=== PATIENT | female | born 1970 | race Caucasian/White ===

== ENCOUNTER 2019-08-19 19:07 | Emergency (ER) | payer MEDICAID ==
--- NOTE | 2019-08-19 19:32 | ED Physician Documentation ---
History of Present Illness - Stated complaint Stated Complaint: LETHARGIC/SHAKING - Chief complaint Chief Complaint: Neuro - History obtained from History obtained from: Patient, Family (michelle) - History of Present Illness Timing: Yesterday Pain level now: 0 Improved by: rest Worsened by: exertion Associated symptoms: tremulous, fatigue, insomnia, confusion, ataxia - Additonal information Additional information: c/o 1-2 days of multiple c/o. Patient says "my hands are shaking", "the main problem is I'm tired". Michelle says patient is unsteady on her feet, having difficulty performing basic tasks such as toileting (difficulty, by his description, seems to be due to a combination of fatigue, ataxia, and confusion). He says she has been fatigued yet has had difficulty sleeping past few nights. Review of Systems Constitutional: reports: Fatigue. denies: Fever, Chills, Sweats Eyes: reports: Reviewed and negative Ears: reports: Reviewed and negative Cardiac: reports: Reviewed and negative Respiratory: reports: Reviewed and negative GI: reports: Reviewed and negative : denies: Dysuria, Frequency Musculoskeletal: reports: Reviewed and negative Neurologic: reports: Generalized weakness, Difficulty speaking, Confused, Altered mental status. denies: Focal weakness, Numbness, Headache PD PAST MEDICAL HISTORY - Past Medical History Past Medical History: No - Past Surgical History Past Surgical History: No - Living Situation Living Situation: reports: With spouse/s.o. (michelle) Living Arrangement: reports: At home - Social History Does the pt drink ETOH?: Yes ETOH Use: Other (states "occasionally") PD ED PE NORMAL - Vitals Vital signs reviewed: Yes - General General: Alert and oriented X 3, Well developed/nourished, Other (slurred speech, slow to answer questions) - HEENT HEENT: Moist mucous membranes - Neck Neck: Supple, no meningeal sign, No JVD - Respiratory Respiratory: No respiratory distress, Clear bilaterally - Abdomen Abdomen: Soft, Non tender, Non distended - Back Back: No CVA TTP - Derm Derm: Normal color, Warm and dry - Extremities Extremities: No edema PD ED PE EXPANDED - HEENT HEENT: Other (pupils are midsize but minimally reactive to light). No: Pupils unequal - Cardiac Cardiac: Tachy, Regular Rhythm, Murmur Present (2/6 JOSE cardiac base (bilateral 2nd ICS)) - Neuro Neuro: Nystagmus Results - Vitals Vitals: Vital Signs - 24 hr 08/19/19 08/19/19 08/19/19 19:14 19:20 20:32 Temperature 36.8 C 98.3 C H Heart Rate 121 H 121 H 122 H Respiratory 18 18 14 Rate Blood Pressure 147/80 H 145/72 H 143/79 H O2 Saturation 98 98 100 08/19/19 21:55 Temperature Heart Rate 120 H Respiratory 15 Rate Blood Pressure 129/80 O2 Saturation 100 Oxygen O2 Source Room air - EKG (time done) No standard instances Rate: Rate (enter#) (121) Rhythm: Sinus tachycardia [place]: Normal Intervals: Prolonged QT QRS: Normal Ischemia: ST depression (V3-V6) - Labs Labs: Laboratory Tests 08/19/19 08/19/19 08/19/19 20:20 20:20 20:20 WBC 3.2 L RBC 2.92 L Hgb 7.0 L* Hct 24.3 L MCV 83.2 MCH 24.0 L MCHC 28.8 L RDW 24.0 H Plt Count 58 L MPV 8.5 Neut # (Auto) 2.5 Lymph # (Auto) 0.4 L [place] # (Auto) 0.2 Eos # (Auto) 0.0 Baso # (Auto) 0.0 Absolute Nucleated RBC 0.00 Nucleated RBC % 0.0 Manual Slide Review Indicated Platelet Estimate DECREASED (<130,000) Platelet Morphology NORMAL APPEARANCE RBC Morph Micro Appear 2+ STOMATOCYTES Sodium 139 Potassium 2.4 L* Chloride 103 Carbon Dioxide 24 Anion Gap 12.0 BUN 8 Creatinine 0.6 Estimated GFR (MDRD) 106 Glucose 135 H Lactic Acid Calcium 8.8 Total Bilirubin 2.8 H AST 81 H ALT 28 Alkaline Phosphatase 193 H Ammonia Troponin I High Sens B-Natriuretic Peptide 98 Total Protein 6.7 Albumin 3.4 Globulin 3.3 Albumin/Globulin Ratio 1.0 Lipase 42 TSH HCG, Quant Ethyl Alcohol < 5.0 08/19/19 08/19/19 08/19/19 20:20 20:20 20:20 WBC RBC Hgb Hct MCV MCH MCHC RDW Plt Count MPV Neut # (Auto) Lymph # (Auto) [place] # (Auto) Eos # (Auto) Baso # (Auto) Absolute Nucleated RBC Nucleated RBC % Manual Slide Review Platelet Estimate Platelet Morphology RBC Morph Micro Appear Sodium Potassium Chloride Carbon Dioxide Anion Gap BUN Creatinine Estimated GFR (MDRD) Glucose Lactic Acid 1.6 Calcium Total Bilirubin AST ALT Alkaline Phosphatase Ammonia Troponin I High Sens B-Natriuretic Peptide Total Protein Albumin Globulin Albumin/Globulin Ratio Lipase TSH 1.59 HCG, Quant 2.05 Ethyl Alcohol 08/19/19 08/19/19 20:20 20:20 WBC RBC Hgb Hct MCV MCH MCHC RDW Plt Count MPV Neut # (Auto) Lymph # (Auto) [place] # (Auto) Eos # (Auto) Baso # (Auto) Absolute Nucleated RBC Nucleated RBC % Manual Slide Review Platelet Estimate Platelet Morphology RBC Morph Micro Appear Sodium Potassium Chloride Carbon Dioxide Anion Gap BUN Creatinine Estimated GFR (MDRD) Glucose Lactic Acid Calcium Total Bilirubin AST ALT Alkaline Phosphatase Ammonia 155.7 H* Troponin I High Sens 7.1 B-Natriuretic Peptide Total Protein Albumin Globulin Albumin/Globulin Ratio Lipase TSH HCG, Quant Ethyl Alcohol - Rads (name of study) CT head Radiology: Prelim report reviewed, See rad report chest xray Radiology: Prelim report reviewed, See rad report PD MEDICAL DECISION MAKING - ED course Complexity details: reviewed results, re-evaluated patient, considered differential, d/w patient, d/w family ED course: w/u significant for ammonia level of 155, pancytopenia including hgb 7.0, and hypokalemia (2.4). She exhibits slurred speech, significant ataxia, and nystagmus. Given lactulose and hospitalist consulted for admission. However, patient then refused admission (please see Dr. Elizabeth's note for his disucssion with patient and patient's fiance). Dr. Elizabeth discussed this development with me. I was filling out AMA form when patient and fiance walked out of ED and refused to wait for review of the AMA form. By that time, patient had already removed her IV. Departure - Departure Disposition: ED [place] Clinical Impression: Hypokalemia, Pancytopenia, Hepatic encephalopathy Discharge Date/Time: 08/19/19 23:07
[2019-08-19] MEDS ORDERED: SODIUM CHLORIDE 0.9% 1,000 ML IV STA (19:57)
[2019-08-19 20:36] LABS: BASOPHILS % (AUTO) 0.6 %; EOSINOPHILS % (AUTO) 0.3 %; LYMPHOCYTES # (AUTO) 0.4 10^3/uL (1.5-3.5); LYMPHOCYTES % (AUTO) 12.5 %; MEAN CORPUSCULAR HGB CONC 28.8 g/dL (32.0-36.0); MEAN CORPUSCULAR VOLUME 83.2 fL (81.0-99.0); MEAN PLATELET VOLUME 8.5 fL (7.9-10.8); MONOCYTES # (AUTO) 0.2 10^3/uL (0.0-1.0); MONOCYTES % (AUTO) 7.2 %; NEUTROPHILS # (AUTO) 2.5 10^3/uL (1.5-6.6); NEUTROPHILS % (AUTO) 78.8 %; PLT - PLATELET COUNT 58 10^3/uL (130-450); RED BLOOD COUNT 2.92 10^6/uL (4.20-5.40); WHITE BLOOD COUNT 3.2 x10^3/uL (4.8-10.8)
--- NOTE | 2019-08-19 20:50 | XRAY Report ---
PROCEDURE: Chest 1 View X-Ray INDICATIONS: AMS, tachycardic TECHNIQUE: One view of the chest was acquired. COMPARISON: None FINDINGS: Surgical changes and devices: None. Lungs and pleura: No pleural effusions or pneumothorax. Lungs are clear. Mediastinum: Mediastinal contours appear normal. Heart size is normal. Bones and chest wall: No suspicious bony lesions. Overlying soft tissues appear unremarkable. IMPRESSION: No acute cardiopulmonary findings. Reviewed by: Aarti Santos MD on 08/19/2019 8:49 PM PDT Approved by: Aarti Santos MD on 08/19/2019 8:49 PM PDT Station ID: [id number]
[2019-08-19 20:51] LABS: ALBUMIN 3.4 g/dL (3.2-5.5); ALKALINE PHOSPHATASE 193 IU/L (42-121); ALT ALANINE AMINOTRANSFERASE 28 IU/L (10-60); AST ASPARTATE AMINOTRANSFERASE 81 IU/L (10-42); BILIRUBIN,TOTAL 2.8 mg/dL (0.2-1.0); BUN - BLOOD UREA NITROGEN 8 mg/dL (6-20); CALCIUM 8.8 mg/dL (8.5-10.3); CARBON DIOXIDE - CO2 24 mmol/L (21-32); CHLORIDE 103 mmol/L (101-111); CREATININE 0.6 mg/dL (0.4-1.0); GLUCOSE 135 mg/dL (70-100); LIPASE 42 U/L (22-51); SODIUM 139 mmol/L (135-145); TOTAL PROTEIN 6.7 g/dL (6.7-8.2)
--- NOTE | 2019-08-19 21:03 | CT Report ---
PROCEDURE: HEAD WO INDICATIONS: AMS TECHNIQUE: Noncontrast 4.5 mm thick angled axial sections acquired from the foramen magnum to the vertex. For r adiation dose reduction, the following was used: automated exposure control, adjustment of mA and/or kV according to patient size. COMPARISON: None. FINDINGS: Image quality: Excellent. CSF spaces: Basal cisterns are patent. No extra-axial fluid collections. Ventricles are normal in size and shape. Brain: No midline shift. No intracranial masses or hemorrhage. Randall-white matter interface is norm al. Skull and face: Calvarium and visualized facial bones are intact, without suspicious lesions. Sinuses: Visualized sinuses and mastoids are clear. IMPRESSION: No acute intracranial findings. Reviewed by: Aarti Santos MD on 08/19/2019 9:02 PM PDT Approved by: Aarti Santos MD on 08/19/2019 9:02 PM PDT Station ID: [id number]
[2019-08-19] MEDS ORDERED: LACTULOSE 10 GM /15 ML UDC PO STA (21:20)
[2019-08-19 21:40] LABS: PLATELET ESTIMATE, MANUAL DECREASED (<130,000) (NORMAL); PLATELET MORPHOLOGY NORMAL APPEARANCE (NORMAL)
[2019-08-19 21:55] VITALS: BP 129/80
--- NOTE | 2019-08-19 23:15 | PROVIDER PROGRESS NOTE ---
Brim Stretching Machine Operator Note - Brim Stretching Machine Operator Note Brim Stretching Machine Operator Note: I was asked to see this patient Lilia Hendricks by the ED physician Dr. Abdalla for admission. The patient's fianc was at bedside and help provide the history. The reported that the patient was brought in because she was having difficulties walking, unstable on her feet, and shaking. Her fianc states that she has been shaking for the past 3 days but it got significantly worse today. She also seemed confused. This was inferred because some of her statements when not making sense. He did not give specific examples. He also reports that she was somnolent. The patient denied any falls, injury, headaches or vision change. She denied chest pain, dyspnea, abdominal pain, nausea, vomiting, fever or chills. In the cause of getting various samples for testing patient was unable to focus enough to provide a urine sample. She was also incontinent of urine wh ile in bed. During the visit she was somewhat tremulous. Her heart rate registered in the 120s. Subsequent labs were significant for an ammonia level of 155, hemoglobin 7 and potassium of 2.4. The patient reported drinking twice a month. She will typically drink 4 beers when she drinks. She denied any illicit drug use. The patient explained that she is visiting her causing and start with the. She came to [facility] 1 week ago. She normally lives in [facility]. I explained the significant lab findings above and discussed the treatment plan with her which would entail several doses of lactulose to get her ammonia level down, replacement of her potassium and checking her magnesium level with possible correction if indicated. I also explained that her ammonia with a hemoglobin of 7 would need to be worked up further and that she would likely need a blood transfusion. At this point the patient and her fianc stated that she would not be staying in the hospital for several reasons. First reason being that she has a phobia against hospitals. Also that she had had a dogs at home and there was nobody there to take care of them. That her cousin goes to work in the morning and her fianc works in [place] and would not be around. She also stated that she would like to go home and come back tomorrow morning. I explained that her lab findings and the treatment would require more time than would be given in the ED. And that if untreated her ammonia level could potentially continue rising to the point where she becomes nonresponsive. And that this could lead to demise. Also her anemia needs to be worked up and she would need a blood transfusion in light of the weakness she is experiencing. The patient and her fianc were not willing to consider these reasons and were insistent on the patient going home. I talked to the ED physician and at this point the patient would be considered leaving AGAINST MEDICAL ADVICE. The potential risk of doing so has been stated as mentioned above to the patient and her fianc.
== END 2019-08-19 23:07 | disposition left against medical advice (07) ==
LOC: ED 19:07 → MERGE 19:07 → ED 23:07
DX: K72.90 Hepatic failure, unspecified without coma (principal); E87.6 Hypokalemia; D61.818 Other pancytopenia; D64.9 Anemia, unspecified; R00.0 Tachycardia, unspecified; I45.81 Long QT syndrome; Z53.29 Procedure and treatment not carried out because of patient's decision for other reasons
CPT/HCPCS: 36415; 70450; 71045; 80053; 80320; 82140; 83605; 83690; 83880; 84443; 84484; 84702; 85025; 93005; 96360; 99284; A9270

== ENCOUNTER 2019-08-21 23:16 | Inpatient (IN) | payer MEDICAID ==
--- NOTE | 2019-08-21 23:34 | ED Physician Documentation ---
History of Present Illness - Stated complaint Stated Complaint: AMS/BK PX/CANT SLEEP - Chief complaint Chief Complaint: General - History obtained from History obtained from: Patient, Family (cousin) - History of Present Illness Timing: How many days ago (3-4) Pain level now: 6 (back pain ("my kidneys hurt", per patient)) Improved by: no ameliorating factors Worsened by: no exacerbating factors Associated symptoms: ataxia, confusion, nausea, insomnia - Additonal information Additional information: Evaluated in this ED 2 days ago (by me), w/u at that time was significant for hypokalemia, anemia (pancytopenia), and markedly elevated ammonia level. She was to be admitted but relented and insisted on leaving AMA; she left (with fiance) before I could review AMA paperwork with her, although [facility] hospitalist did advise patient and her fiance of the risks of leaving AMA and documented this conversation with them. Patient returns at this time with her cousin. Patient has same c/o as previous visit: insomnia despite fatigue, confusion, ataxia (unsteady gait). Patient apologizes for leaving on previous visit and says she will agree to admission if this is recommended tonight. She told me on previous visit that she drinks occasionally, but tonight she admits to regular and heavy drinking which she stopped just three days ago. She says she has been hospitalized for similar symptoms recently (March at another facility). Review of Systems Constitutional: reports: Fatigue. denies: Fever, Chills, Sweats Eyes: reports: Reviewed and negative Ears: reports: Reviewed and negative Nose: reports: Reviewed and negative Throat: reports: Reviewed and negative Cardiac: reports: Reviewed and negative Respiratory: reports: Reviewed and negative GI: reports: Nausea. denies: Abdominal Pain, Vomiting, Constipation, Diarrhea, Hematemesis, Bloody / black stool : denies: Dysuria, Frequency Skin: reports: Reviewed and negative Musculoskeletal: reports: Back pain Neurologic: reports: Generalized weakness. denies: Focal weakness, Numbness, Headache Psychiatric: reports: Anxiety, Insomnia PD PAST MEDICAL HISTORY - Past Medical History Past Medical History: Yes Other Past Medical History: anemia - Past Surgical History Past Surgical History: No - Present Medications Home Medications: Ambulatory Orders Medication Instructions Recorded Confirmed Multivitamin [Theragran] 1 tab PO DAILY 08/22/19 08/22/19 Omeprazole 10 mg PO DAILY 08/22/19 08/22/19 Valerian Root Extract [Valerian] 0 mg PO DAILY 08/22/19 08/22/19 - Allergies Allergies/Adverse Reactions: Allergies Allergy/AdvReac Type Severity Reaction Status Date / Time Penicillins Allergy Anaphylaxis Verified 08/21/19 23:21 - Social History Does the pt smoke?: Yes Smoking Status: Current every day smoker Does the pt drink ETOH?: Yes - Immunizations Immunizations are current?: No - POLST Patient has POLST: No PD ED PE NORMAL - Vitals Vital signs reviewed: Yes - General General: Alert and oriented X 3, No acute distress, Well developed/nourished - HEENT HEENT: PERRL, EOMI, Moist mucous membranes - Neck Neck: Supple, no meningeal sign - Cardiac Cardiac: RRR, No murmur - Respiratory Respiratory: No respiratory distress, Clear bilaterally - Abdomen Abdomen: Soft, Non tender, Non distended - Back Back: No CVA TTP - Derm Derm: Other (pale) - Extremities Extremities: No edema - Neuro Neuro: Other (nystagmus) Eye Opening: Spontaneous Motor: Obeys Commands Verbal: Oriented GCS Score: 15 PD ED PE EXPANDED - Rectal Rectal: Normal Tone, Elevator Mechanic present, Other (sent to lab for heme occult testing (guaiac solution no longer provided to ED)). No: Mass, Hemorrhoid, Fissure Results - Vitals Vitals: Vital Signs - 24 hr 08/21/19 08/21/19 08/22/19 23:21 23:48 00:45 Temperature 36.7 C Heart Rate 100 100 90 Respiratory 14 17 17 Rate Blood Pressure 140/70 H 179/86 H 138/79 H O2 Saturation 100 100 98 08/22/19 08/22/19 08/22/19 01:13 01:28 01:49 Temperature 36.6 C Heart Rate 99 101 H 101 H Respiratory 16 16 18 Rate Blood Pressure 141/78 H 141/78 H 143/76 H O2 Saturation 100 100 100 08/22/19 02:03 Temperature Heart Rate 102 H Respiratory 12 Rate Blood Pressure 137/69 H O2 Saturation 100 Oxygen O2 Source Room air - Labs Labs: Laboratory Tests 08/22/19 08/22/19 08/22/19 00:15 00:15 00:30 WBC 3.2 L RBC 2.72 L Hgb 6.6 L* Hct 22.7 L MCV 83.5 MCH 24.3 L MCHC 29.1 L RDW 24.2 H Plt Count 66 L MPV 8.7 Neut # (Auto) 2.2 Lymph # (Auto) 0.7 L [place] # (Auto) 0.3 Eos # (Auto) 0.0 Baso # (Auto) 0.0 Absolute Nucleated RBC 0.00 Nucleated RBC % 0.0 Manual Slide Review Indicated WBC Morphology NORMAL APPEARANCE Platelet Estimate DECREASED (<130,000) Platelet Morphology NORMAL APPEARANCE RBC Morph Micro Appear 2+ HYPOCHROMASIA Sodium Potassium Chloride Carbon Dioxide Anion Gap BUN Creatinine Estimated GFR (MDRD) Glucose Calcium Total Bilirubin AST ALT Alkaline Phosphatase Ammonia Total Protein Albumin Globulin Albumin/Globulin Ratio Lipase Urine Color YELLOW Urine Clarity CLEAR Urine pH 8.0 H Ur Specific [place] 1.010 1.010 Urine Protein NEGATIVE Urine Glucose (UA) NEGATIVE Urine Ketones NEGATIVE Urine Occult Blood NEGATIVE Urine Nitrite NEGATIVE Urine Bilirubin NEGATIVE Urine Urobilinogen 1 (NORMAL) Ur Leukocyte Esterase TRACE H Urine RBC 0-5 Urine WBC 0-3 Ur Squamous Epith Cells FEW Squamous Urine Bacteria Moderate H Ur Microscopic Review INDICATED Urine Culture Comments INDICATED Urine HCG, Qual NEGATIVE Blood Type Recheck 08/22/19 08/22/19 08/22/19 00:30 00:30 00:30 WBC RBC Hgb Hct MCV MCH MCHC RDW Plt Count MPV Neut # (Auto) Lymph # (Auto) [place] # (Auto) Eos # (Auto) Baso # (Auto) Absolute Nucleated RBC Nucleated RBC % Manual Slide Review WBC Morphology Platelet Estimate Platelet Morphology RBC Morph Micro Appear Sodium 137 Potassium 2.3 L* Chloride 103 Carbon Dioxide 25 Anion Gap 9.0 BUN 9 Creatinine 0.7 Estimated GFR (MDRD) 89 Glucose 132 H Calcium 8.5 Total Bilirubin 2.9 H AST 58 H ALT 24 Alkaline Phosphatase 163 H Ammonia 209.6 H* Total Protein 5.9 L Albumin 3.2 Globulin 2.7 Albumin/Globulin Ratio 1.2 Lipase 53 H Urine Color Urine Clarity Urine pH Ur Specific [place] Urine Protein Urine Glucose (UA) Urine Ketones Urine Occult Blood Urine Nitrite Urine Bilirubin Urine Urobilinogen Ur Leukocyte Esterase Urine RBC Urine WBC Ur Squamous Epith Cells Urine Bacteria Ur Microscopic Review Urine Culture Comments Urine HCG, Qual Blood Type Recheck A POSITIVE - Rads (name of study) chest xray Radiology: Prelim report reviewed, See rad report Procedures - Central Line Central Line Preparation: Consent Obtained, Ultrasound used, Sterile prep and drape Central line location: Right IJ Central line type: Triple lumen Central line aftercare: Chlorhexidine disc placed, Secured, Placement confirmed, No pneumothorax, No complications, Pt tolerated well PD MEDICAL DECISION MAKING - ED course Complexity details: reviewed old records, reviewed results, re-evaluated patient, considered differential, d/w patient, d/w family ED course: labs have worsened since previous visit, with lower hemoglobin, higher ammonia level, and lower potassium than 2 days ago. She again requires hospitalization for stabilization to include repletion of potassium and PRBC transfusions. D/W Dr. Elizabeth who accepts admission to hospitalist service. Departure - Departure Disposition: 66 [facility] DC/Xfer Clinical Impression: Hypokalemia, Pancytopenia, Hepatic encephalopathy Condition: Stable Discharge Date/Time: 08/22/19 03:25
[2019-08-21] MEDS ORDERED: ONDANSETRON 4 MG/2 ML VIAL IVP STA (23:52)
[2019-08-21] MEDS ORDERED: SODIUM CHLORIDE 0.9% 1,000 ML IV STA (23:52)
[2019-08-21] MEDS ORDERED: LORazepam 2 MG/ML VIAL IVP STA (23:52)
[2019-08-22 00:48] LABS: BASOPHILS % (AUTO) 0.3 %; EOSINOPHILS % (AUTO) 0.6 %; LYMPHOCYTES # (AUTO) 0.7 10^3/uL (1.5-3.5); LYMPHOCYTES % (AUTO) 20.7 %; MEAN CORPUSCULAR HEMOGLOBIN 24.3 pg (27.0-31.0); MEAN CORPUSCULAR HGB CONC 29.1 g/dL (32.0-36.0); MEAN CORPUSCULAR VOLUME 83.5 fL (81.0-99.0); MEAN PLATELET VOLUME 8.7 fL (7.9-10.8); MONOCYTES # (AUTO) 0.3 10^3/uL (0.0-1.0); MONOCYTES % (AUTO) 9.1 %; NEUTROPHILS # (AUTO) 2.2 10^3/uL (1.5-6.6); NEUTROPHILS % (AUTO) 68.7 %; PLT - PLATELET COUNT 66 10^3/uL (130-450); RED BLOOD COUNT 2.72 10^6/uL (4.20-5.40); RED CELL DISTRIBUTION WIDTH 24.2 % (12.0-15.0); WHITE BLOOD COUNT 3.2 x10^3/uL (4.8-10.8)
[2019-08-22 00:52] LABS: BILIRUBIN,URINE NEGATIVE (NEGATIVE); GLUCOSE, URINE (UA) NEGATIVE (NEGATIVE); KETONES,URINE (UA) NEGATIVE (NEGATIVE); LEUKOCYTE ESTERASE, URINE TRACE (NEGATIVE); NITRITE,URINE NEGATIVE (NEGATIVE); OCCULT BLOOD,URINE NEGATIVE (NEGATIVE); PROTEIN,URINE NEGATIVE (NEGATIVE); UROBILINOGEN,URINE 1 (NORMAL) E.U./dL (NORMAL)
[2019-08-22 00:54] LABS: CLARITY,URINE CLEAR (CLEAR)
[2019-08-22 00:54] LABS: HGB - HEMOGLOBIN 6.6 g/dL (12.0-16.0)
[2019-08-22 00:56] LABS: HCG UR QUAL NEGATIVE
[2019-08-22 01:05] LABS: BACTERIA,URINE Moderate /HPF (None Seen); RBC,URINE 0-5 /HPF (0-5); SQUAMOUS EPITHELIAL CELL,UR FEW Squamous (<= Few)
[2019-08-22 01:10] LABS: PLATELET ESTIMATE, MANUAL DECREASED (<130,000) (NORMAL); PLATELET MORPHOLOGY NORMAL APPEARANCE (NORMAL)
[2019-08-22 01:19] LABS: ALBUMIN 3.2 g/dL (3.2-5.5); ALBUMIN/GLOBULIN RATIO 1.2 (1.0-2.2); BILIRUBIN,TOTAL 2.9 mg/dL (0.2-1.0); CALCIUM 8.5 mg/dL (8.5-10.3); CREATININE 0.7 mg/dL (0.4-1.0); TOTAL PROTEIN 5.9 g/dL (6.7-8.2)
[2019-08-22] MEDS ORDERED: LACTULOSE 10 GM /15 ML UDC PO STA (02:29)
[2019-08-22] MEDS ORDERED: POTASSIUM CHLOR 10 MEQ/100 ML 10 MEQ/100 ML BAG IV STA (02:29)
--- NOTE | 2019-08-22 02:34 | HISTORY & PHYSICAL EXAMINATION ---
Chief Complaint - Chief Complaint Chief Complaint: confusion History of Present Illness - Admitted From Admitted From:: [facility] ED - History Obtained From Records Reviewed: yes History obtained from: patient and cousin Exam Limitations: encephalopathy - History of Present Illness HPI Comment/Other: Patient is a 49-year-old female who presented to the ED today with confusion, weakness and a complaint of not sleeping for the past week. She had presented 2 days ago with complaint of being tired for several days. Her fianc who was at bedside at the initial visit stated that she seemed confused, somnolent and had been very tremulous for the past 3 days. On the day of her initial presentation which was August 19 2019, the fianc reported that the tremors were exceptionally worse and she was unable to ambulate. It was reported that she recently moved to [facility] to live with a cousin. She was previously living in [facility] and had not seen this cousin in 11 years. Initial work-up showed a hemoglobin of 7.0, platelet 58. It also showed a potassium of 2.3 and an ammonia level of 155. The decision was made to admit the patient however she and her fianc declined stating that the patient had a phobia against hospitals, there was no one at home to take care of her dogs and she intended to return to the emergency room the following morning. She left the ED AGAINST MEDICAL ADVICE. She was brought in today by her cousin after complaining of right-sided back pain. She denied any pain or burning with urination however she reported a strong smell to her urine and increased urine frequency. She reported abdominal pain but could not localize it. Work-up today showed a hemoglobin of 6.6, platelet 66 and WBC 3.2. She also had a potassium level of 2.3 and an ammonia level of 210. She denied any dark tarry stools. However she reports receiving a massive transfusion in the past. She cannot give me any specifics as to the reason why she received this transfusion. She appears even more confused and somnolent today. Her UA was negative for nitrites, had moderate bacteria and trace leukocyte esterase. Patient is afebrile. As a result of the above she is being admitted for further treatment. History - Past Medical History GI: reports: GERD Psych: reports: Depression, Anxiety, Panic attacks MRSA Hx?: No Other Past Medical History: aLCOHOLISM - Past Surgical History General: reports: Appendectomy - Family & Social History Family History Comment/Other: mother: . Hx of unspecified cardiac disease Social History Notes: She moved to [facility] from [facility] about 1 week ago. She is living with a cousin whom she has not seen in 11 years. She reports smoking about 1 pack of cigarettes a week. She considers an unspecified but very significant amount of alcohol. She denies any history of recreational substances. - POLST Patient has POLST: No POLST Status: Full Code Meds/Allgy - Home Medications Home Medications: Ambulatory Orders Medication Instructions Recorded Confirmed Potassium Chloride 10 meq PO DAILY 08/21/19 08/21/19 - Allergies Allergies/Adverse Reactions: Allergies Allergy/AdvReac Type Severity Reaction Status Date / Time Penicillins Allergy Anaphylaxis Verified 08/21/19 23:21 Review of Systems - Constitutional Constitutional: reports: Weakness. denies: Fever, Chills - Eyes Eyes: denies: Pain - Ears, Nose & Throat Ears, Nose & Throat: denies: Ear pain - Cardiovascular Cariovascular: reports: Palpitations. denies: Chest pain, Edema, Lightheadedness, Syncope, Exertional dyspnea - Respiratory Respiratory: denies: Cough, Sputum production, Wheezing, SOB at rest, SOB with exertion - Gastrointestinal Gastrointestinal: reports: Abdominal pain (unspecified), Reflux/heartburn - Genitourinary Genitourinary: reports: Frequency, Other (strong odor). denies: Dysuria, Hematuria - Musculoskeletal Musculoskeletal: reports: Back pain (right flank). denies: Muscle pain - Integumentary Integumentary: denies: Rash, Pruritis - Neurological Neurological: denies: Headache, Dizziness - Psychiatric Psychiatric: reports: Depression, Anxiety - Endocrine Endocrine: denies: Polyuria, Polydypsia - Hematologic/Lymphatic Hematologic/Lymphatic: reports: Anemia. denies: Bruising, Petechiae Prior Level of Functionality: Patient is normally independent of activities of daily living Exam - Vital Signs Vital Signs: Vital Signs x48h Temp Pulse Resp BP Pulse Ox 08/22/19 02:03 102 H 12 137/69 H 100 08/22/19 01:49 101 H 18 143/76 H 100 08/22/19 01:28 36.6 C 101 H 16 141/78 H 100 08/22/19 01:13 99 16 141/78 H 100 08/22/19 00:45 90 17 138/79 H 98 08/21/19 23:48 100 17 179/86 H 100 08/21/19 23:21 36.7 C 100 14 140/70 H 100 - Physical Exam General Appearance: positive: No acute distress, Lethargic Eyes Bilateral: positive: PERRL, EOMI, Other (slight scleral icterus) ENT: negative: ENT inspection nml, Pharynx nml, No signs of dehydration Neck: positive: No JVD, Trachea midline Respiratory: positive: Chest non-tender, No respiratory distress, Breath sounds nml. negative: Wheezes, Rales, Rhonchi Cardiovascular: positive: No murmur, Tachycardia Abdomen: positive: Non-tender, Nml bowel sounds, No distention. negative: Guarding, Rebound Back: positive: Nml inspection Skin: positive: Color nml, No rash, Warm, Dry Extremities: positive: Non-tender, Full ROM, Nml appearance, No pedal edema Neurologic/Psychiatric: positive: Other (somnolent encephalopathic) Conclusion/Plan - Problem List (1) Hepatic encephalopathy Conclusion/Plan: Likely secondary to alcoholism. Lactulose 20 g TID ordered. Until loose stools begin (2) Anemia Conclusion/Plan: Etiology not yet determined In light of pancytopenia, I suspect an overall bone marrow suppression related to alcoholism. However, also checking Vitamin B12, Folate, TIBC, iron level, haptoglobin and ferritin levels. Stool guaiac pending. If positive will consult general surgery for possible EGD. Will type and screen, crossmatch and transfuse 2 units of packed red blood cells. (3) Hypokalemia Conclusion/Plan: Will replace and recheck. We will also check patient's magnesium level and replace accordingly. (4) Alcoholism Conclusion/Plan: Banana bag has been ordered. Patient placed on CIWA protocol. Vitamin B1 supplement on a daily. (5) GERD (gastroesophageal reflux disease) Conclusion/Plan: Protonix 40 mg IV daily ordered - Lab Results Fish Bones: 08/22/19 00:30 08/22/19 00:30 Core Measures - Anticipated LOS I expect patient to be DC'd or transferred within 96 hours.: Yes - DVT/VTE - Prophylaxis VTE/DVT Device ordered at admit?: Yes
[2019-08-22 03:27] LABS: INR 1.8 (0.8-1.2); PT - PROTHROMBIN TIME 19.5 secs (9.9-12.6)
[2019-08-22] MEDS: SODIUM CHLORIDE 0.9% 1,000 ML IV SCH ×2 (04:01→22:55)
[2019-08-22] MEDS: LACTULOSE 10 GM /15 ML UDC PO SCH ×4 (04:02→21:23)
[2019-08-22] MEDS: POTASSIUM CHLOR 20 MEQ/100 ML 20 MEQ/100 ML BAG IV SCH ×9 (04:02→17:11)
[2019-08-22 04:58] LABS: BASOPHILS % (AUTO) 0.7 %; EOSINOPHILS % (AUTO) 0.7 %; LYMPHOCYTES % (AUTO) 25.6 %; MEAN CORPUSCULAR HEMOGLOBIN 23.7 pg (27.0-31.0); MEAN CORPUSCULAR HGB CONC 28.9 g/dL (32.0-36.0); MEAN CORPUSCULAR VOLUME 82.1 fL (81.0-99.0); MEAN PLATELET VOLUME 9.4 fL (7.9-10.8); NEUTROPHILS % (AUTO) 62.6 %; PLT - PLATELET COUNT 61 10^3/uL (130-450); RED BLOOD COUNT 2.57 10^6/uL (4.20-5.40); RED CELL DISTRIBUTION WIDTH 24.2 % (12.0-15.0); WHITE BLOOD COUNT 2.7 x10^3/uL (4.8-10.8)
[2019-08-22] MEDS: SODIUM CHLORIDE FLUSH 0.9% 10 ML SYRINGE IVP PRN ×3 (04:59→19:43)
[2019-08-22 05:09] LABS: CALCIUM 8.2 mg/dL (8.5-10.3); CREATININE 0.6 mg/dL (0.4-1.0); PHOSPHORUS 2.4 mg/dL (2.5-4.6)
[2019-08-22 05:14] LABS: MAGNESIUM 1.8 mg/dL (1.7-2.8)
[2019-08-22 05:54] LABS: HGB - HEMOGLOBIN 6.1 g/dL (12.0-16.0)
[2019-08-22 05:56] LABS: ABNORMAL LYMPHS % (MANUAL) 0 %; BAND NEUTROPHILS % (MANUAL) 0 %
[2019-08-22] MEDS: ACETAMINOPHEN 325 MG TABLET PO PRN ×2 (06:31→19:42)
[2019-08-22] MEDS: PANTOPRAZOLE 40 MG VIAL IVP SCH (06:32)
[2019-08-22 06:38] LABS: EOSINOPHILS # (MANUAL) 0.1 10^3/uL (0-0.7); LYMPHOCYTES # (MANUAL) 0.6 10^3/uL (1.5-3.5); LYMPHOCYTES % (MANUAL) 24 %; MONOCYTES # (MANUAL) 0.2 10^3/uL (0.0-1.0)
[2019-08-22 06:41] LABS: DIFFERENTIAL COMMENT MANUAL DIFFERENTIAL; PLATELET ESTIMATE, MANUAL DECREASED (<130,000) (NORMAL); PLATELET MORPHOLOGY NORMAL APPEARANCE (NORMAL)
[2019-08-22] MEDS ORDERED: IOVERSOL 320 100 ML VIAL IVP ONE (07:09)
--- NOTE | 2019-08-22 07:42 | PHARMACY PROGRESS NOTE ---
- Best Possible Medication History Admit Date and Time: 08/22/19210 Processed by: Pharmacy Medication History completed: Yes Patient Interview: Pt unable to participate Secondary Source(s): Spouse/Significant other As the person ultimately responsible for medication therapy, providers are able to order a medication from an existing home medication list in [facility] via the "Reconcile Routine" prior to Confirmation of that medication by lab support tech. Such practice is discouraged except when the physician, in their clinical judgment, deems that a medical need exists for a medication without regard to previous use.
--- NOTE | 2019-08-22 07:55 | XRAY Report ---
PROCEDURE: Chest for Line Placement INDICATIONS: POst central line TECHNIQUE: One view of the chest was acquired. COMPARISON: 08/19/2019 FINDINGS: Surgical changes and devices: A right IJ central line is in place, with its tip projecting to the SVC right atrial junction.. Lungs and pleura: No pleural effusions or pneumothorax. Lungs are clear. Mediastinum: Mediastinal contours appear normal. Heart size is normal. Bones and chest wall: No suspicious bony lesions. Overlying soft tissues appear unremarkable. IMPRESSION: Central line in satisfactory position. No evidence acute pulmonary process. Reviewed by: Rupert Onofre MD on 08/22/2019 6:54 AM COY Approved by: Rupert Onofre MD on 08/22/2019 6:54 AM COY Station ID: [id number]
[2019-08-22] MEDS: SODIUM CHLORIDE FLUSH 0.9% 10 ML SYRINGE IVP SCH ×3 (08:58→19:42)
[2019-08-22] MEDS: ONDANSETRON 4 MG/2 ML VIAL IVP PRN ×2 (08:58→19:42)
[2019-08-22] MEDS ORDERED: MULTIVITAMIN 10 ML, THIAMINE INJ 100 MG, FOLIC ACID INJ 1 MG in SODIUM CHLORIDE 0.9% 1,... IV SCH (09:00)
[2019-08-22] MEDS: THIAMINE 100 MG TABLET PO SCH (10:05)
[2019-08-22] MEDS: FERROUS SULFATE 325 MG TABLET PO SCH ×2 (10:05→16:24)
--- NOTE | 2019-08-22 10:13 | CT Report ---
PROCEDURE: Abdomen/Pelvis W INDICATIONS: abd pain/ right flank pain. Elevated Alk phos CONTRAST: IV CONTRAST: Optiray 320 ml: 100 PO CONTRAST: *NO PO CONTRAST TECHNIQUE: After the administration of oral and intravenous contrast, 5 mm thick sections acquired from the diap hragms to the symphysis. 5 mm thick coronal and sagittal reformats were acquired. For radiation dos e reduction, the following was used: automated exposure control, adjustment of mA and/or kV accordin g to patient size. COMPARISON: None. FINDINGS: Image quality: Excellent. ABDOMEN: Lung bases: Lung bases are clear. Heart size is normal. Solid organs: The liver has diffuse fatty infiltration and mild prominence of the left lobe and surfa ce nodularity. Findings are consistent with fatty infiltration and cirrhotic change. There is recanal ization of the umbilical vein. The spleen is borderline enlarged, measuring 13.4 cm. Gallbladder is s urgically absent Biliary system is non dilated. Pancreas enhances normally. No adrenal nodules. K idneys demonstrate normal size and enhancement, without hydronephrosis. There is a nonobstructing 2 mm left middle pole stone and a 3 mm nonobstructing left lower pole stone. There is a 1 mm nonobstruc ting right upper pole stone. Peritoneum and bowel: There is mild diffuse thickening of the wall of the right colon, nonspecific in the setting of hepatocellular disease. Bowel is otherwise normal in appearance. Trace amount of karie hepatic and mild pelvic ascites. No free air or abscess. Nodes and vessels: No retroperitoneal or mesenteric adenopathy by size criteria. Aorta and inferior vena cava are normal in size. There are perihepatic and aortocaval and portacaval varicosities. Miscellaneous: No ventral hernias. PELVIS: Genitourinary: Bladder wall thickness is normal. Miscellaneous: No inguinal hernias or adenopathy. Bones: No suspicious bony lesions. No vertebral body compression fractures. IMPRESSION: 1. Cirrhosis, hepatic steatosis 2. Small amount of ascites, abdominal varicosities, and mild splenomegaly are consistent with portal venous hypertension. 3. Gallbladder is surgically absent. 4. Right colonic wall thickening and edema in the setting of hepatocellular dysfunction is a nonspeci fic finding. Reviewed by: Rupert Onofre MD on 08/22/2019 9:11 AM COY Approved by: Rupert Onofre MD on 08/22/2019 9:11 AM [facility]WAGNER Station ID: [id number]
[2019-08-22] MEDS: MORPHINE 2 MG/ML CARPUJECT IVP PRN ×3 (10:44→19:43)
--- NOTE | 2019-08-22 11:30 | PROVIDER PROGRESS NOTE ---
Assessment/Plan - Current Meds Current Meds: Current Medications Generic Name Dose Route Start Last Admin Trade Name Freq PRN Reason Stop Dose Admin Acetaminophen 650 mg 08/22/19 06:02 08/22/19 19:42 Tylenol PO 650 mg Q6HR PRN Administration Pain or Fever > 38C (100.4F) Ferrous Sulfate 325 mg 08/22/19 08:00 08/23/19 09:31 Feosol PO 325 mg BIDWM [facility] Administration Folic Acid 1 mg 08/23/19 09:00 08/23/19 09:31 PO 1 mg DAILY [facility] Administration Sodium Chloride 1,000 mls @ 100 mls/hr 08/22/19 03:00 08/23/19 09:30 Normal Saline 0.9% IV 100 mls/hr .Q10H [facility] Administration Potassium Chloride 40 meq/ 250 mls @ 125 mls/hr 08/23/19 08:00 08/23/19 11:30 Sodium Chloride IV 08/23/19 11:59 125 mls/hr Q2H [facility] Administration Lactulose 20 gm 08/22/19 03:00 08/23/19 06:31 Enulose PO 20 gm TID [facility] Administration Morphine Sulfate 2 mg 08/22/19 10:28 08/23/19 07:09 Morphine (Carpuject) IVP 2 mg Q2HR PRN Administration PAIN Multivitamins 1 tab 08/23/19 09:00 08/23/19 09:31 Theragran PO 1 tab DAILYWM [facility] Administration Ondansetron HCl 4 mg 08/22/19 02:11 08/23/19 07:09 Zofran Inj IVP 4 mg Q6HR PRN Administration Nausea / Vomiting Pantoprazole Sodium 40 mg 08/22/19 07:00 08/23/19 06:33 Protonix IVP 40 mg QDAC [facility] Administration Sodium Chloride 10 ml 08/22/19 09:00 08/23/19 09:31 Normal Saline Flush 0.9% IVP 10 ml 0100,0900,1700 [facility] Administration Sodium Chloride 10 ml 08/22/19 02:11 08/23/19 07:09 Normal Saline Flush 0.9% IVP 10 ml PRN PRN Administration NEEDED PER PROVIDER ORDERS Sodium Chloride 20 ml 08/23/19 01:29 08/23/19 04:34 Normal Saline Flush 0.9% IVP 20 ml PRN PRN Administration After Blood Draw Thiamine HCl 100 mg 08/22/19 09:00 08/23/19 09:34 Vitamin B-1 PO 100 mg DAILY [facility] Administration Trazodone HCl 50 mg 08/22/19 20:11 08/22/19 21:23 Desyrel PO 50 mg QPM PRN Administration Insomnia - Lab Result Fish Bone Diagrams: 08/23/19 04:30 08/23/19 04:30 - Additional Planning My Orders: My Active Orders 08/23/19 08:00 Potassium Chloride Inj 40 meq Sodium Chloride 0.9% [Normal Saline 0.9%] 230 ml IV Q2H 08/23/19 09:00 Folic Acid 1 mg PO DAILY Multivitamin [Theragran] 1 tab PO DAILYWM 08/23/19 Dinner DIET [Low Sodium Diet] [DIET] <Doreen Corona - Last Filed: 08/23/19 11:52> - Problem List (1) Hepatic encephalopathy Assessment/Plan: Conclusion/Plan: Likely secondary to alcoholism. Lactulose 20 g TID ordered. Until loose stools begin Inability of pt to accurately recall recent history of admission in [place], cannot obtain records from previous hospital. (2) Anemia Conclusion/Plan: Etiology not yet determined, hx of gastric ulcers Fecal occult negative CT confirmed gastric varicosities Transfuse 2 units of packed red blood cells. Iron found to be low (16), Ferrous sulfate 325mg PO BID ordered Repeat CBC post transfusion and daily (3) Hypokalemia Conclusion/Plan: A total of 100mEqKCl was administered. Recheck K level (4) Alcoholism Conclusion/Plan: Banana bag infusing. Patient placed on CIWA protocol. No PRN lorazapam needed. Vitamin B1 supplement on a daily. Repeat daily CMP (5) GERD (gastroesophageal reflux disease) Conclusion/Plan: Protonix 40 mg IV daily given (6) Back/Flank Pain PRN Acetaminophen 650mg PO Q6hr PRN Morphine 2mg IVP Q2hr - Current Meds Current Meds: Current Medications Generic Name Dose Route Start Last Admin Trade Name Freq PRN Reason Stop Dose Admin Acetaminophen 650 mg 08/22/19 06:02 08/22/19 06:31 Tylenol PO 650 mg Q6HR PRN Administration Pain or Fever > 38C (100.4F) Ferrous Sulfate 325 mg 08/22/19 08:00 08/22/19 10:05 Feosol PO 325 mg BIDWM [place] Administration Sodium Chloride 1,000 mls @ 100 mls/hr 08/22/19 03:00 08/22/19 07:00 Normal Saline 0.9% IV 100 mls/hr .Q10H [facility] Infusion Multivitamins 10 ml/ Thiamine 1,011.2 mls @ 100 mls/hr 08/22/19 09:00 08/22/19 10:04 HCl 100 mg/ Folic Acid 1 mg/ IV 100 mls/hr Sodium Chloride DAILY [facility] Administration Lactulose 20 gm 08/22/19 03:00 08/22/19 06:31 Enulose PO 20 gm TID [facility] Administration Morphine Sulfate 2 mg 08/22/19 10:28 08/22/19 10:44 Morphine (Carpuject) IVP 2 mg Q2HR PRN Administration PAIN Ondansetron HCl 4 mg 08/22/19 02:11 08/22/19 08:58 Zofran Inj IVP 4 mg Q6HR PRN Administration Nausea / Vomiting Pantoprazole Sodium 40 mg 08/22/19 07:00 08/22/19 06:32 Protonix IVP 40 mg QDAC [facility] Administration Sodium Chloride 10 ml 08/22/19 09:00 08/22/19 08:58 Normal Saline Flush 0.9% IVP 10 ml 0100,0900,1700 [facility] Administration Sodium Chloride 10 ml 08/22/19 02:11 08/22/19 06:32 Normal Saline Flush 0.9% IVP 10 ml PRN PRN Administration NEEDED PER PROVIDER ORDERS Thiamine HCl 100 mg 08/22/19 09:00 08/22/19 10:05 Vitamin B-1 PO 100 mg DAILY [facility] Administration - Lab Result Fish Bone Diagrams: 08/23/19 04:30 08/23/19 04:30 - EKG Results EKG Interpreted Independently: No - Diagnostic Imaging Results Diagnostic Imaging Results: See rad report <Charlotte Prater - Last Filed: 08/23/19 12:01> Subjective - Subjective Patient Reports: Feeling Better (Pt is reporting 7/10 back pain, when asked to point at pain pt pointed to lumbar area directly over her spine. Demonstrating visible signs of pain when asked to sit forward. Pt reports utilizing tylenol and ibuprofen OTC to manage her back pain at home with little relief. Bending and moving exacerba), Back Pain Nursing Reports: Pain (RN reports pt continued to experience back pain despite Acetaminophen, ordered PRN Morphine IVP, pain relieved from Morphine. Pt verbalized feeling better.) <Charlotte Prater - Last Filed: 08/23/19 12:01> Objective Vital Signs: Vital Signs - 24 hr 08/22/19 08/22/19 08/22/19 11:57 13:00 13:06 Temperature 37.1 C 37.2 C Heart Rate 93 Heart Rate [ 97 86 Monitoring electrodes] Respiratory 12 12 14 Rate Blood Pressure 136/71 H Blood Pressure 154/79 H 136/71 H [Right Brachial artery] O2 Saturation 100 98 08/22/19 08/22/19 08/22/19 14:00 15:00 16:00 Temperature Heart Rate Heart Rate [ 100 88 86 Monitoring electrodes] Respiratory 17 12 12 Rate Blood Pressure Blood Pressure 119/65 158/82 H 148/98 H [Right Brachial artery] O2 Saturation 98 100 100 08/22/19 08/22/19 08/22/19 17:00 18:00 19:00 Temperature Heart Rate Heart Rate [ 83 89 94 Monitoring electrodes] Respiratory 11 L 10 L 18 Rate Blood Pressure Blood Pressure 146/76 H 125/74 149/98 H [Right Brachial artery] O2 Saturation 100 99 97 08/22/19 08/22/19 08/22/19 20:00 21:29 22:00 Temperature 36.6 C 36.6 C Heart Rate Heart Rate [ 89 94 85 Monitoring electrodes] Respiratory 11 L 13 10 L Rate Blood Pressure Blood Pressure 166/90 H 131/79 H 143/73 H [Right Brachial artery] O2 Saturation 100 99 98 08/22/19 08/23/19 08/23/19 23:00 00:00 01:00 Temperature 36.6 C 36.6 C Heart Rate Heart Rate [ 87 93 94 Monitoring electrodes] Respiratory 8 L 10 L 10 L Rate Blood Pressure Blood Pressure 106/50 L 112/58 L 108/53 L [Right Brachial artery] O2 Saturation 96 96 95 08/23/19 08/23/19 08/23/19 02:00 03:00 04:00 Temperature Heart Rate Heart Rate [ 94 95 92 Monitoring electrodes] Respiratory 12 10 L 10 L Rate Blood Pressure Blood Pressure 111/58 L 115/61 117/56 L [Right Brachial artery] O2 Saturation 97 95 96 08/23/19 08/23/19 08/23/19 05:00 06:00 07:00 Temperature 36.9 C Heart Rate Heart Rate [ 100 96 98 Monitoring electrodes] Respiratory 11 L 11 L 14 Rate Blood Pressure Blood Pressure 123/65 119/64 142/85 H [Right Brachial artery] O2 Saturation 95 95 99 08/23/19 08/23/19 08/23/19 08:00 09:00 10:00 Temperature Heart Rate Heart Rate [ 100 98 99 Monitoring electrodes] Respiratory 18 17 Rate Blood Pressure Blood Pressure 148/87 H 117/52 L 117/76 [Right Brachial artery] O2 Saturation 99 98 100 08/23/19 11:00 Temperature Heart Rate Heart Rate [ 88 Monitoring electrodes] Respiratory 21 Rate Blood Pressure Blood Pressure 134/78 H [Right Brachial artery] O2 Saturation 98 Oxygen O2 Source Room air I&O (Last 24 Hrs): Intake and Output Totals x24h 08/21/19 08/22/19 08/23/19 23:59 23:59 23:59 Intake Total 7313.866 2080.000 Output Total 2325 1200 Balance 4988.866 880.000 - Results Results: Laboratory Results WBC 3.0 x10^3/uL (4.8-10.8) L 08/23/19 04:30 RBC 3.35 10^6/uL (4.20-5.40) L 08/23/19 04:30 Hgb 8.2 g/dL (12.0-16.0) L 08/23/19 04:30 Hct 28.2 % (37.0-47.0) L 08/23/19 04:30 MCV 84.2 fL (81.0-99.0) 08/23/19 04:30 MCH 24.5 pg (27.0-31.0) L 08/23/19 04:30 MCHC 29.1 g/dL (32.0-36.0) L 08/23/19 04:30 RDW 20.8 % (12.0-15.0) H 08/23/19 04:30 Plt Count 59 10^3/uL (130-450) L 08/23/19 04:30 MPV 9.2 fL (7.9-10.8) 08/23/19 04:30 Neut # (Auto) 2.0 10^3/uL (1.5-6.6) 08/23/19 04:30 Lymph # (Auto) 0.6 10^3/uL (1.5-3.5) L 08/23/19 04:30 [place] # (Auto) 0.3 10^3/uL (0.0-1.0) 08/23/19 04:30 Eos # (Auto) 0.1 10^3/uL (0.0-0.7) 08/23/19 04:30 Baso # (Auto) 0.0 10^3/uL (0.0-0.1) 08/23/19 04:30 Absolute Nucleated RBC 0.00 x10^3/uL 08/23/19 04:30 Total Counted 100 08/22/19 04:30 Band Neuts % (Manual) 0 % (0-10) 08/22/19 04:30 Abnorm Lymph % (Manual) 0 % 08/22/19 04:30 Nucleated RBC % 0.0 /100WBC 08/23/19 04:30 Neutrophils # (Manual) 1.8 10^3/uL (1.5-6.6) 08/22/19 04:30 Lymphocytes # (Manual) 0.6 10^3/uL (1.5-3.5) L 08/22/19 04:30 Monocytes # (Manual) 0.2 10^3/uL (0.0-1.0) 08/22/19 04:30 Eosinophils # (Manual) 0.1 10^3/uL (0-0.7) 08/22/19 04:30 Basophils # (Manual) 0.0 10^3/uL (0-0.1) 08/22/19 04:30 Differential Comment MANUAL DIFFERENTIAL 08/22/19 04:30 Manual Slide Review Indicated 08/23/19 04:30 WBC Morphology NORMAL APPEARANCE (NORMAL) 08/23/19 04:30 Platelet Estimate DECREASED (<130,000) (NORMAL) 08/23/19 04:30 Platelet Morphology NORMAL APPEARANCE (NORMAL) 08/23/19 04:30 RBC Morph Micro Appear 2+ ANISOCYTOSIS (NORMAL) 08/23/19 04:30 PT 19.5 secs (9.9-12.6) H 08/22/19 02:48 INR 1.8 (0.8-1.2) H 08/22/19 02:48 Sodium 137 mmol/L (135-145) 08/23/19 04:30 Potassium 2.9 mmol/L (3.5-5.0) L 08/23/19 04:30 Chloride 112 mmol/L (101-111) H 08/23/19 04:30 Carbon Dioxide 20 mmol/L (21-32) L 08/23/19 04:30 Anion Gap 5.0 (6-13) L 08/23/19 04:30 BUN 6 mg/dL (6-20) 08/23/19 04:30 Creatinine 0.5 mg/dL (0.4-1.0) 08/23/19 04:30 Estimated GFR (MDRD) 131 (>89) 08/23/19 04:30 Glucose 82 mg/dL (70-100) 08/23/19 04:30 Calcium 7.7 mg/dL (8.5-10.3) L 08/23/19 04:30 Phosphorus 2.7 mg/dL (2.5-4.6) 08/23/19 04:30 Magnesium 1.8 mg/dL (1.7-2.8) 08/22/19 19:16 Iron 16 ug/dL (28-170) L 08/22/19 04:30 TIBC 441 ug/dL (250-450) 08/22/19 04:30 % Saturation 4 % (20-50) L 08/22/19 04:30 Transferrin 315 mg/dL (192-382) 08/22/19 04:30 Ferritin 9.8 ng/mL (11.0-306.8) L 08/22/19 04:30 Total Bilirubin 2.9 mg/dL (0.2-1.0) H 08/22/19 00:30 AST 58 IU/L (10-42) H 08/22/19 00:30 ALT 24 IU/L (10-60) 08/22/19 00:30 Alkaline Phosphatase 163 IU/L (42-121) H 08/22/19 00:30 Ammonia 114.4 umol/L (7-35) H* 08/23/19 04:30 Total Protein 5.9 g/dL (6.7-8.2) L 08/22/19 00:30 Albumin 2.7 g/dL (3.2-5.5) L 08/23/19 04:30 Globulin 2.7 g/dL (2.1-4.2) 08/22/19 00:30 Albumin/Globulin Ratio 1.2 (1.0-2.2) 08/22/19 00:30 Lipase 53 U/L (22-51) H 08/22/19 00:30 Vitamin B12 708 pg/mL (180-914) 08/22/19 04:30 Folate 11.54 ng/mL (5.90 - >24.8) 08/22/19 04:30 Urine Color YELLOW 08/22/19 00:15 Urine Clarity CLEAR (CLEAR) 08/22/19 00:15 Urine pH 8.0 PH (5.0-7.5) H 08/22/19 00:15 Ur Specific [place] 1.010 (1.002-1.030) 08/22/19 00:15 Ur Specific [place] 1.010 (1.002-1.030) 08/22/19 00:15 Urine Protein NEGATIVE mg/dL (NEGATIVE) 08/22/19 00:15 Urine Glucose (UA) NEGATIVE mg/dL (NEGATIVE) 08/22/19 00:15 Urine Ketones NEGATIVE mg/dL (NEGATIVE) 08/22/19 00:15 Urine Occult Blood NEGATIVE (NEGATIVE) 08/22/19 00:15 Urine Nitrite NEGATIVE (NEGATIVE) 08/22/19 00:15 Urine Bilirubin NEGATIVE (NEGATIVE) 08/22/19 00:15 Urine Urobilinogen 1 (NORMAL) E.U./dL (NORMAL) 08/22/19 00:15 Ur Leukocyte Esterase TRACE (NEGATIVE) H 08/22/19 00:15 Urine RBC 0-5 /HPF (0-5) 08/22/19 00:15 Urine WBC 0-3 /HPF (0-5) 08/22/19 00:15 Ur Squamous Epith Cells FEW Squamous (<= Few) 08/22/19 00:15 Urine Bacteria Moderate /HPF (None Seen) H 08/22/19 00:15 Ur Microscopic Review INDICATED 08/22/19 00:15 Urine Culture Comments INDICATED 08/22/19 00:15 Urine HCG, Qual NEGATIVE 08/22/19 00:15 Nasal Screen MRSA (PCR) NEGATIVE (NEGATIVE) 08/22/19 03:35 Acetaminophen 11 ug/mL (10-30) 08/22/19 12:02 Blood Type A POSITIVE 08/22/19 02:48 Blood Type Recheck A POSITIVE 08/22/19 00:30 Antibody Screen NEGATIVE 08/22/19 02:48 Crossmatch IS Only See Detail 08/22/19 02:48 <Doreen Corona - Last Filed: 08/23/19 11:52> Vital Signs: Vital Signs - 24 hr 08/21/19 08/21/19 08/22/19 23:21 23:48 00:45 Temperature 36.7 C Heart Rate 100 100 90 Heart Rate [ Monitoring electrodes] Respiratory 14 17 17 Rate Blood Pressure 140/70 H 179/86 H 138/79 H Blood Pressure [Right Brachial artery] O2 Saturation 100 100 98 08/22/19 08/22/19 08/22/19 01:13 01:28 01:49 Temperature 36.6 C Heart Rate 99 101 H 101 H Heart Rate [ Monitoring electrodes] Respiratory 16 16 18 Rate Blood Pressure 141/78 H 141/78 H 143/76 H Blood Pressure [Right Brachial artery] O2 Saturation 100 100 100 08/22/19 08/22/19 08/22/19 02:03 02:55 03:20 Temperature 36.7 C 36.4 C L Heart Rate 102 H 101 H 96 Heart Rate [ Monitoring electrodes] Respiratory 12 18 15 Rate Blood Pressure 137/69 H 112/91 H 131/83 H Blood Pressure [Right Brachial artery] O2 Saturation 100 100 100 08/22/19 08/22/19 08/22/19 03:30 04:49 05:00 Temperature 36.9 C 36.8 C 36.8 C Heart Rate 94 93 Heart Rate [ 94 96 Monitoring electrodes] Respiratory 18 14 14 Rate Blood Pressure 137/79 H 142/79 H Blood Pressure 142/71 H 142/79 H [Right Brachial artery] O2 Saturation 100 100 08/22/19 08/22/19 08/22/19 05:40 05:45 06:00 Temperature 36.8 C 36.6 C 36.6 C Heart Rate 96 100 Heart Rate [ 89 100 Monitoring electrodes] Respiratory 14 13 16 Rate Blood Pressure 140/85 H 127/72 Blood Pressure 128/82 H 127/72 [Right Brachial artery] O2 Saturation 100 99 08/22/19 08/22/19 08/22/19 06:15 06:30 06:40 Temperature 36.8 C 36.4 C L Heart Rate 104 H 100 92 Heart Rate [ Monitoring electrodes] Respiratory 16 14 13 Rate Blood Pressure 129/73 123/68 133/79 H Blood Pressure [Right Brachial artery] O2 Saturation 08/22/19 08/22/19 08/22/19 07:00 08:00 09:00 Temperature 36.4 C L 98.5 C H 36.4 C L Heart Rate Heart Rate [ 91 87 100 Monitoring electrodes] Respiratory 13 15 22 Rate Blood Pressure Blood Pressure 125/75 138/77 H 144/92 H [Right Brachial artery] O2 Saturation 100 100 100 08/22/19 08/22/19 08/22/19 10:00 10:24 10:37 Temperature 37.2 C 37.1 C Heart Rate 96 92 Heart Rate [ 98 Monitoring electrodes] Respiratory 17 15 13 Rate Blood Pressure 149/96 H 154/83 H Blood Pressure 133/88 H [Right Brachial artery] O2 Saturation 100 08/22/19 10:47 Temperature 37.2 C Heart Rate 96 Heart Rate [ Monitoring electrodes] Respiratory 97 H Rate Blood Pressure 146/78 H Blood Pressure [Right Brachial artery] O2 Saturation Oxygen O2 Source Room air I&O (Last 24 Hrs): Intake and Output Totals x24h 08/20/19 08/21/19 08/22/19 23:59 23:59 23:59 Intake Total 2704.666 Output Total 1575 Balance 1129.666 General: Oriented x3, Cooperative HEENT: Atraumatic, Other (significant nystagmus noted in all barrientos.) Neck: Supple, No LAD Neuro: Speech Slurred, Oriented Times 3, Other (Pt is able to report location, date, and reason for admission however she is foggy with medical history details or quoting inaccuracies. Asterixes present.) Cardiovascular: Regular rate, Normal S1, Normal S2, No murmurs, Other (RN reported to providers short run of 14 beat Vtach, occurring after completion of K replacement. Recheck K pending.) Respiratory: Chest non-tender, No respiratory distress, Breath sounds nml Abdomen: Normal bowel sounds, Soft, Other (slight tenderness to palpation over LUQ, described as a deep sharp pain.) Extremities: No edema, Normal pulses, No tenderness/swelling Skin: No rashes, No breakdown - Results Results: Laboratory Results WBC 2.7 x10^3/uL (4.8-10.8) L 08/22/19 04:30 RBC 2.57 10^6/uL (4.20-5.40) L 08/22/19 04:30 Hgb 6.1 g/dL (12.0-16.0) L* 08/22/19 04:30 Hct 21.1 % (37.0-47.0) L 08/22/19 04:30 MCV 82.1 fL (81.0-99.0) 08/22/19 04:30 MCH 23.7 pg (27.0-31.0) L 08/22/19 04:30 MCHC 28.9 g/dL (32.0-36.0) L 08/22/19 04:30 RDW 24.2 % (12.0-15.0) H 08/22/19 04:30 Plt Count 61 10^3/uL (130-450) L 08/22/19 04:30 MPV 9.4 fL (7.9-10.8) 08/22/19 04:30 Neut # (Auto) Not Reportable 08/22/19 04:30 Lymph # (Auto) Not Reportable 08/22/19 04:30 [place] # (Auto) Not Reportable 08/22/19 04:30 Eos # (Auto) Not Reportable 08/22/19 04:30 Baso # (Auto) Not Reportable 08/22/19 04:30 Absolute Nucleated RBC Not Reportable 08/22/19 04:30 Total Counted 100 08/22/19 04:30 Band Neuts % (Manual) 0 % (0-10) 08/22/19 04:30 Abnorm Lymph % (Manual) 0 % 08/22/19 04:30 Nucleated RBC % Not Reportable 08/22/19 04:30 Neutrophils # (Manual) 1.8 10^3/uL (1.5-6.6) 08/22/19 04:30 Lymphocytes # (Manual) 0.6 10^3/uL (1.5-3.5) L 08/22/19 04:30 Monocytes # (Manual) 0.2 10^3/uL (0.0-1.0) 08/22/19 04:30 Eosinophils # (Manual) 0.1 10^3/uL (0-0.7) 08/22/19 04:30 Basophils # (Manual) 0.0 10^3/uL (0-0.1) 08/22/19 04:30 Differential Comment MANUAL DIFFERENTIAL 08/22/19 04:30 Manual Slide Review Indicated 08/22/19 00:30 WBC Morphology NORMAL APPEARANCE (NORMAL) 08/22/19 04:30 Platelet Estimate DECREASED (<130,000) (NORMAL) 08/22/19 04:30 Platelet Morphology NORMAL APPEARANCE (NORMAL) 08/22/19 04:30 RBC Morph Micro Appear 3+ ANISOCYTOSIS (NORMAL) 2+ HYPOCHROMASIA (NORMAL) 08/22/19 04:30 RBC Morph Micro Appear 3+ ANISOCYTOSIS (NORMAL) 2+ HYPOCHROMASIA (NORMAL) 08/22/19 04:30 PT 19.5 secs (9.9-12.6) H 08/22/19 02:48 INR 1.8 (0.8-1.2) H 08/22/19 02:48 Sodium 141 mmol/L (135-145) 08/22/19 04:30 Potassium 3.1 mmol/L (3.5-5.0) L 08/22/19 04:30 Chloride 109 mmol/L (101-111) 08/22/19 04:30 Carbon Dioxide 25 mmol/L (21-32) 08/22/19 04:30 Anion Gap 7.0 (6-13) 08/22/19 04:30 BUN 8 mg/dL (6-20) 08/22/19 04:30 Creatinine 0.6 mg/dL (0.4-1.0) 08/22/19 04:30 Estimated GFR (MDRD) 106 (>89) 08/22/19 04:30 Glucose 106 mg/dL (70-100) H 08/22/19 04:30 Calcium 8.2 mg/dL (8.5-10.3) L 08/22/19 04:30 Phosphorus 2.4 mg/dL (2.5-4.6) L 08/22/19 04:30 Magnesium 1.8 mg/dL (1.7-2.8) 08/22/19 04:30 Iron 16 ug/dL (28-170) L 08/22/19 04:30 TIBC 441 ug/dL (250-450) 08/22/19 04:30 % Saturation 4 % (20-50) L 08/22/19 04:30 Transferrin 315 mg/dL (192-382) 08/22/19 04:30 Ferritin 9.8 ng/mL (11.0-306.8) L 08/22/19 04:30 Total Bilirubin 2.9 mg/dL (0.2-1.0) H 08/22/19 00:30 AST 58 IU/L (10-42) H 08/22/19 00:30 ALT 24 IU/L (10-60) 08/22/19 00:30 Alkaline Phosphatase 163 IU/L (42-121) H 08/22/19 00:30 Ammonia 158.8 umol/L (7-35) H* 08/22/19 04:30 Total Protein 5.9 g/dL (6.7-8.2) L 08/22/19 00:30 Albumin 3.2 g/dL (3.2-5.5) 08/22/19 00:30 Globulin 2.7 g/dL (2.1-4.2) 08/22/19 00:30 Albumin/Globulin Ratio 1.2 (1.0-2.2) 08/22/19 00:30 Lipase 53 U/L (22-51) H 08/22/19 00:30 Vitamin B12 708 pg/mL (180-914) 08/22/19 04:30 Folate 11.54 ng/mL (5.90 - >24.8) 08/22/19 04:30 Urine Color YELLOW 08/22/19 00:15 Urine Clarity CLEAR (CLEAR) 08/22/19 00:15 Urine pH 8.0 PH (5.0-7.5) H 08/22/19 00:15 Ur Specific [place] 1.010 (1.002-1.030) 08/22/19 00:15 Ur Specific [place] 1.010 (1.002-1.030) 08/22/19 00:15 Urine Protein NEGATIVE mg/dL (NEGATIVE) 08/22/19 00:15 Urine Glucose (UA) NEGATIVE mg/dL (NEGATIVE) 08/22/19 00:15 Urine Ketones NEGATIVE mg/dL (NEGATIVE) 08/22/19 00:15 Urine Occult Blood NEGATIVE (NEGATIVE) 08/22/19 00:15 Urine Nitrite NEGATIVE (NEGATIVE) 08/22/19 00:15 Urine Bilirubin NEGATIVE (NEGATIVE) 08/22/19 00:15 Urine Urobilinogen 1 (NORMAL) E.U./dL (NORMAL) 08/22/19 00:15 Ur Leukocyte Esterase TRACE (NEGATIVE) H 08/22/19 00:15 Urine RBC 0-5 /HPF (0-5) 08/22/19 00:15 Urine WBC 0-3 /HPF (0-5) 08/22/19 00:15 Ur Squamous Epith Cells FEW Squamous (<= Few) 08/22/19 00:15 Urine Bacteria Moderate /HPF (None Seen) H 08/22/19 00:15 Ur Microscopic Review INDICATED 08/22/19 00:15 Urine Culture Comments INDICATED 08/22/19 00:15 Urine HCG, Qual NEGATIVE 08/22/19 00:15 Nasal Screen MRSA (PCR) NEGATIVE (NEGATIVE) 08/22/19 03:35 Blood Type A POSITIVE 08/22/19 02:48 Blood Type Recheck A POSITIVE 08/22/19 00:30 Antibody Screen NEGATIVE 08/22/19 02:48 Crossmatch IS Only See Detail 08/22/19 02:48 <Charlotte Prater - Last Filed: 08/23/19 12:01> ABX Reporting Has patient been on IV antibiotics over the past 48 hours?: No <Charlotte Prater - Last Filed: 08/23/19 12:01> Current Medications - Current Medications Current Medications: Active Medications Acetaminophen (Tylenol) 650 mg PO Q6HR PRN PRN Reason: Pain or Fever > 38C (100.4F) Last Admin: 08/22/19 06:31 Dose: 650 mg Documented by: Ferrous Sulfate (Feosol) 325 mg PO BIDWM [facility] Last Admin: 08/22/19 10:05 Dose: 325 mg Documented by: Sodium Chloride (Normal Saline 0.9%) 1,000 mls @ 100 mls/hr IV .Q10H [facility] Last Infusion: 08/22/19 07:00 Dose: 100 mls/hr Documented by: Multivitamins 10 ml/ Thiamine HCl 100 mg/ Folic Acid 1 mg/Sodium Chloride 1,011.2 mls @ 100 mls/hr IV DAILY [facility] Last Admin: 08/22/19 10:04 Dose: 100 mls/hr Documented by: Lactulose (Enulose) 20 gm PO TID [facility] Last Admin: 08/22/19 06:31 Dose: 20 gm Documented by: Lorazepam (Ativan Inj (Vial)) 1 mg IVP Q30M PRN; Protocol PRN Reason: CIWA >8 Morphine Sulfate (Morphine (Carpuject)) 2 mg IVP Q2HR PRN PRN Reason: PAIN Last Admin: 08/22/19 10:44 Dose: 2 mg Documented by: Ondansetron HCl (Zofran Inj) 4 mg IVP Q6HR PRN PRN Reason: Nausea / Vomiting Last Admin: 08/22/19 08:58 Dose: 4 mg Documented by: Pantoprazole Sodium (Protonix) 40 mg IVP [facility] Last Admin: 08/22/19 06:32 Dose: 40 mg Documented by: Sodium Chloride (Normal Saline Flush 0.9%) 10 ml IVP 0100,0900,1700 [facility] Last Admin: 08/22/19 08:58 Dose: 10 ml Documented by: Sodium Chloride (Normal Saline Flush 0.9%) 10 ml IVP PRN PRN PRN Reason: NEEDED PER PROVIDER ORDERS Last Admin: 08/22/19 06:32 Dose: 10 ml Documented by: Thiamine HCl (Vitamin B-1) 100 mg PO DAILY [facility] Last Admin: 08/22/19 10:05 Dose: 100 mg Documented by: Multivitamin [Theragran] 1 tab PO DAILY 08/22/19 Omeprazole 10 mg PO DAILY 08/22/19 Valerian Root Extract [Valerian] 0 mg PO DAILY 08/22/19 <Charlotte Prater - Last Filed: 08/23/19 12:01>
[2019-08-22 12:25] LABS: MAGNESIUM 1.9 mg/dL (1.7-2.8); PHOSPHORUS 2.8 mg/dL (2.5-4.6)
[2019-08-22 14:22] LABS: HGB - HEMOGLOBIN 7.9 g/dL (12.0-16.0); MEAN CORPUSCULAR HEMOGLOBIN 26.2 pg (27.0-31.0); MEAN CORPUSCULAR HGB CONC 30.7 g/dL (32.0-36.0); MEAN CORPUSCULAR VOLUME 85.1 fL (81.0-99.0); MEAN PLATELET VOLUME 9.5 fL (7.9-10.8); RED BLOOD COUNT 3.02 10^6/uL (4.20-5.40); RED CELL DISTRIBUTION WIDTH 21.1 % (12.0-15.0); WHITE BLOOD COUNT 2.4 x10^3/uL (4.8-10.8)
[2019-08-22 19:22] LABS: HGB - HEMOGLOBIN 9.3 g/dL (12.0-16.0); MEAN CORPUSCULAR HEMOGLOBIN 25.8 pg (27.0-31.0); MEAN CORPUSCULAR HGB CONC 30.2 g/dL (32.0-36.0); MEAN CORPUSCULAR VOLUME 85.3 fL (81.0-99.0); MEAN PLATELET VOLUME 8.7 fL (7.9-10.8); RED BLOOD COUNT 3.61 10^6/uL (4.20-5.40); WHITE BLOOD COUNT 4.2 x10^3/uL (4.8-10.8)
[2019-08-22 19:34] LABS: MAGNESIUM 1.8 mg/dL (1.7-2.8); PHOSPHORUS 2.6 mg/dL (2.5-4.6)
[2019-08-22] MEDS: traZODone 50 MG TABLET PO PRN (21:23)
[2019-08-23] MEDS: SODIUM CHLORIDE FLUSH 0.9% 10 ML SYRINGE IVP PRN ×6 (04:34→23:35)
[2019-08-23] MEDS: MORPHINE 2 MG/ML CARPUJECT IVP PRN ×5 (04:34→23:34)
[2019-08-23 05:15] LABS: EOSINOPHILS # (AUTO) 0.1 10^3/uL (0.0-0.7); HGB - HEMOGLOBIN 8.2 g/dL (12.0-16.0); LYMPHOCYTES # (AUTO) 0.6 10^3/uL (1.5-3.5); LYMPHOCYTES % (AUTO) 20.6 %; MEAN CORPUSCULAR HEMOGLOBIN 24.5 pg (27.0-31.0); MEAN CORPUSCULAR HGB CONC 29.1 g/dL (32.0-36.0); MEAN CORPUSCULAR VOLUME 84.2 fL (81.0-99.0); MEAN PLATELET VOLUME 9.2 fL (7.9-10.8); MONOCYTES # (AUTO) 0.3 10^3/uL (0.0-1.0); MONOCYTES % (AUTO) 9.6 %; NEUTROPHILS % (AUTO) 66.1 %; PLT - PLATELET COUNT 59 10^3/uL (130-450); RED BLOOD COUNT 3.35 10^6/uL (4.20-5.40); RED CELL DISTRIBUTION WIDTH 20.8 % (12.0-15.0)
[2019-08-23 05:25] LABS: CALCIUM 7.7 mg/dL (8.5-10.3); CREATININE 0.5 mg/dL (0.4-1.0); PHOSPHORUS 2.7 mg/dL (2.5-4.6)
[2019-08-23 06:05] LABS: RBC MORPHOLOGY (MULTIPLE) 2+ ANISOCYTOSIS (NORMAL)
[2019-08-23 06:06] LABS: PLATELET ESTIMATE, MANUAL DECREASED (<130,000) (NORMAL); PLATELET MORPHOLOGY NORMAL APPEARANCE (NORMAL)
[2019-08-23] MEDS: LACTULOSE 10 GM /15 ML UDC PO SCH ×3 (06:31→21:35)
[2019-08-23] MEDS: PANTOPRAZOLE 40 MG VIAL IVP SCH (06:33)
[2019-08-23] MEDS: ONDANSETRON 4 MG/2 ML VIAL IVP PRN (07:09)
[2019-08-23] MEDS ORDERED: POTASSIUM CHLOR 20 MEQ/100 ML 20 MEQ/100 ML BAG IV SCH (08:00)
[2019-08-23] MEDS: SODIUM CHLORIDE 0.9% 1,000 ML IV SCH ×2 (09:30→18:36)
[2019-08-23] MEDS: POTASSIUM CHLORIDE INJ 40 MEQ in SODIUM CHLORIDE 0.9% 230 ML IV SCH ×2 (09:30→11:30)
[2019-08-23] MEDS: MULTIVITAMIN TABLET PO SCH (09:31)
[2019-08-23] MEDS: SODIUM CHLORIDE FLUSH 0.9% 10 ML SYRINGE IVP SCH ×3 (09:31→23:35)
[2019-08-23] MEDS: FOLIC ACID 1 MG TABLET PO SCH (09:31)
[2019-08-23] MEDS: FERROUS SULFATE 325 MG TABLET PO SCH ×2 (09:31→16:57)
[2019-08-23] MEDS: THIAMINE 100 MG TABLET PO SCH (09:34)
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
[2019-08-23 15:23] LABS: MAGNESIUM 1.6 mg/dL (1.7-2.8); PHOSPHORUS 2.2 mg/dL (2.5-4.6)
[2019-08-23] MEDS ORDERED: MAGNESIUM SULFATE 2 GRAM 2 GM/50 ML BAG IV ONE (16:00)
[2019-08-23] MEDS ORDERED: POTASSIUM CHLORIDE 20 MEQ TABLET PO SCH (16:00)
[2019-08-23] MEDS ORDERED: POTASSIUM PHOSPHATE 15 MMOL in SODIUM CHLORIDE 0.9% 250 ML IV ONE (17:00)
[2019-08-23] MEDS: traZODone 50 MG TABLET PO PRN (21:35)
[2019-08-23] MEDS: CIPROFLOXACIN 250 MG TABLET PO SCH (21:35)
[2019-08-23] MEDS ORDERED: LORazepam 1 MG TABLET PO STA (23:22)
[2019-08-24] MEDS: MORPHINE 2 MG/ML CARPUJECT IVP PRN ×4 (04:13→22:45)
[2019-08-24] MEDS: SODIUM CHLORIDE FLUSH 0.9% 10 ML SYRINGE IVP PRN ×4 (04:14→22:45)
[2019-08-24] MEDS: PANTOPRAZOLE 40 MG VIAL IVP SCH (06:31)
[2019-08-24] MEDS: LACTULOSE 10 GM /15 ML UDC PO SCH ×3 (06:31→21:05)
[2019-08-24 07:39] LABS: CALCIUM 8.1 mg/dL (8.5-10.3); CREATININE 0.6 mg/dL (0.4-1.0)
[2019-08-24 08:07] LABS: BASOPHILS % (AUTO) 0.9 %; EOSINOPHILS # (AUTO) 0.1 10^3/uL (0.0-0.7); EOSINOPHILS % (AUTO) 1.8 %; HGB - HEMOGLOBIN 8.4 g/dL (12.0-16.0); LYMPHOCYTES # (AUTO) 0.6 10^3/uL (1.5-3.5); LYMPHOCYTES % (AUTO) 16.9 %; MEAN CORPUSCULAR HGB CONC 29.5 g/dL (32.0-36.0); MEAN CORPUSCULAR VOLUME 84.8 fL (81.0-99.0); MEAN PLATELET VOLUME 9.3 fL (7.9-10.8); MONOCYTES # (AUTO) 0.3 10^3/uL (0.0-1.0); MONOCYTES % (AUTO) 9.8 %; NEUTROPHILS # (AUTO) 2.4 10^3/uL (1.5-6.6); NEUTROPHILS % (AUTO) 69.4 %; PLT - PLATELET COUNT 67 10^3/uL (130-450); RED BLOOD COUNT 3.36 10^6/uL (4.20-5.40); WHITE BLOOD COUNT 3.4 x10^3/uL (4.8-10.8)
[2019-08-24 08:13] LABS: MAGNESIUM 1.9 mg/dL (1.7-2.8); PHOSPHORUS 2.3 mg/dL (2.5-4.6)
[2019-08-24] MEDS: MULTIVITAMIN TABLET PO SCH (08:18)
[2019-08-24] MEDS: FERROUS SULFATE 325 MG TABLET PO SCH ×2 (08:18→16:38)
[2019-08-24] MEDS: SODIUM CHLORIDE FLUSH 0.9% 10 ML SYRINGE IVP SCH ×2 (08:18→16:38)
[2019-08-24] MEDS: THIAMINE 100 MG TABLET PO SCH (08:18)
[2019-08-24] MEDS: FOLIC ACID 1 MG TABLET PO SCH (08:18)
[2019-08-24] MEDS: CIPROFLOXACIN 250 MG TABLET PO SCH ×2 (08:18→21:05)
[2019-08-24 08:43] LABS: PLATELET ESTIMATE, MANUAL DECREASED (<130,000) (NORMAL)
[2019-08-24 08:44] LABS: PLATELET MORPHOLOGY NORMAL APPEARANCE (NORMAL)
[2019-08-24] MEDS: NEUTRA-PHOS 250 MG TABLET PO SCH ×2 (10:24→12:03)
--- NOTE | 2019-08-24 11:13 | PROVIDER PROGRESS NOTE ---
Subjective - Prog Note Date Prog Note Date: 08/24/19 Prog Note Time: 11:19 - Subjective Pt reports feeling: Improved Subjective: From the time she was admitted to now she is much improved. She was still lethargic she really could not respond in full sentences when she was admitted. Over the last 48 hours she is become more lucid, more alert. Speech is more distinct. Her fianc has been at the bedside several times. He is at the bedside this morning. We have called [facility] and they have no record of her being mated in December. We have called [facility] [facility] twice now. Also in [place]. They continue to say they have no record of her using the name Britain or the name Potter. She denies chest pain, cough, shortness of breath. Low-grade temp of 37.9 this morning. She continues to have leg pain, generalized abdominal aching. Nothing severe and no change. Objective - Vital Signs/Intake & Output Reviewed Vital Signs: Yes Vital Signs: Vital Signs x48h Temp Pulse Resp BP Pulse Ox 08/24/19 11:00 99 18 141/75 H 95 08/24/19 10:00 37.5 C 102 H 12 128/68 95 08/24/19 09:00 78 20 137/82 H 96 08/24/19 08:00 37.9 C H 110 H 18 139/73 H 96 08/24/19 07:00 106 H 12 116/54 L 95 08/24/19 06:00 105 H 12 129/67 96 08/24/19 05:00 107 H 13 134/77 H 94 08/24/19 04:17 37.1 C 107 H 12 149/67 H 96 08/24/19 04:00 105 H 13 149/67 H 97 Intake & Output: Intake & Output 08/21/19 08/22/19 08/23/19 08/24/19 23:59 23:59 23:59 23:59 Intake Total 7313.866 4325.000 1200 Output Total 2325 2300 1350 Balance 4988.866 2025.000 -150 - Objective General Appearance: positive: No acute distress, Other (Asleep to the point that I had a full conversation with her firob with her not waking up. Yet when I touch her shoulder, she immediately awakens and is appropriate. Speech is still slightly lethargic. Thoughts are still difficult to come by with some psychomotor slowing.) Eyes Bilateral: positive: PERRL, EOMI ENT: positive: Dry mucous membranes Neck: positive: No JVD. negative: Stiff neck, Carotid bruit Respiratory: positive: Chest non-tender, No respiratory distress. negative: Wheezes, Rales, Rhonchi Cardiovascular: positive: Regular rate & rhythm. negative: Gallop/S4, Friction rub Abdomen: positive: No organomegaly, Nml bowel sounds, No distention, Other (Mild generalized ache, Worse in the upper abdomen than the lower abdomen. Still with flank pain). negative: Guarding, Rebound Skin: positive: Warm, Dry Extremities: positive: Full ROM, No pedal edema Neurologic/Psychiatric: positive: Oriented x3, CN's nml (2-12). negative: Motor nml (Both motor and psycho slowing but intact. Asterixis from admission has improved) - Lab Results Fish Bones: 08/24/19 07:25 08/24/19 07:25 Other Labs: Lab Results x24hrs 08/24/19 08/24/19 08/24/19 Range/Units 07:25 07:25 07:25 WBC (4.8-10.8) x10^3/uL RBC (4.20-5.40) 10^6/uL Hgb (12.0-16.0) g/dL Hct (37.0-47.0) % MCV (81.0-99.0) fL MCH (27.0-31.0) pg MCHC (32.0-36.0) g/dL RDW (12.0-15.0) % Plt Count (130-450) 10^3/uL MPV (7.9-10.8) fL Neut # (Auto) (1.5-6.6) 10^3/uL Lymph # (Auto) (1.5-3.5) 10^3/uL Wetzel # (Auto) (0.0-1.0) 10^3/uL Eos # (Auto) (0.0-0.7) 10^3/uL Baso # (Auto) (0.0-0.1) 10^3/uL Absolute Nucleated RBC x10^3/uL Nucleated RBC % /100WBC Manual Slide Review Platelet Estimate (NORMAL) Platelet Morphology (NORMAL) RBC Morph Micro Appear (NORMAL) Sodium 138 (135-145) mmol/L Potassium 3.6 (3.5-5.0) mmol/L Chloride 109 (101-111) mmol/L Carbon Dioxide 21 (21-32) mmol/L Anion Gap 8.0 (6-13) BUN 5 L (6-20) mg/dL Creatinine 0.6 (0.4-1.0) mg/dL Estimated GFR (MDRD) 106 (>89) Glucose 104 H (70-100) mg/dL Calcium 8.1 L (8.5-10.3) mg/dL Phosphorus 2.3 L (2.5-4.6) mg/dL Magnesium 1.9 (1.7-2.8) mg/dL Ammonia 147.9 H* (7-35) umol/L 08/24/19 08/23/19 Range/Units 07:25 15:07 WBC 3.4 L (4.8-10.8) x10^3/uL RBC 3.36 L (4.20-5.40) 10^6/uL Hgb 8.4 L (12.0-16.0) g/dL Hct 28.5 L (37.0-47.0) % MCV 84.8 (81.0-99.0) fL MCH 25.0 L (27.0-31.0) pg MCHC 29.5 L (32.0-36.0) g/dL RDW 21.0 H (12.0-15.0) % Plt Count 67 L (130-450) 10^3/uL MPV 9.3 (7.9-10.8) fL Neut # (Auto) 2.4 (1.5-6.6) 10^3/uL Lymph # (Auto) 0.6 L (1.5-3.5) 10^3/uL Wetzel # (Auto) 0.3 (0.0-1.0) 10^3/uL Eos # (Auto) 0.1 (0.0-0.7) 10^3/uL Baso # (Auto) 0.0 (0.0-0.1) 10^3/uL Absolute Nucleated RBC 0.00 x10^3/uL Nucleated RBC % 0.0 /100WBC Manual Slide Review Indicated Platelet Estimate DECREASED (<130,000) (NORMAL) Platelet Morphology NORMAL APPEARANCE (NORMAL) RBC Morph Micro Appear 1+ TARGET CELLS (NORMAL) Sodium (135-145) mmol/L Potassium 3.5 (3.5-5.0) mmol/L Chloride (101-111) mmol/L Carbon Dioxide (21-32) mmol/L Anion Gap (6-13) BUN (6-20) mg/dL Creatinine (0.4-1.0) mg/dL Estimated GFR (MDRD) (>89) Glucose (70-100) mg/dL Calcium (8.5-10.3) mg/dL Phosphorus 2.2 L (2.5-4.6) mg/dL Magnesium 1.6 L (1.7-2.8) mg/dL Ammonia (7-35) umol/L Assessment/Plan - Problem List (1) Hepatic encephalopathy Impression: 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 Lactulose 20 g TID ordered. Until loose stools begin. She is having small bowel movements, but nothing indicating the lactulose is too much. She still encephalopathic and ammonia level went down and then up. Encephalopathy has improved. Inability of pt to accurately recall recent history of admission in [place], cannot obtain records from previous hospital. I tried again today with [facility] in [place]. Using both her current name of Jorje and a last name of Dorian (the name of her second ) they do not have any records for her. [facility] also does not have any records for her. Plan: Increase lactulose Continue to try and find her old records Physical therapy evaluation and treatment today. Transfer from ICU to [facility] status. (2) Anemia Conclusion/Plan: Etiology not yet determined, hx of gastric ulcers Fecal occult negative CT confirmed gastric varicosities A total of 2 units of packed cells transfused. She started at 6.6 g of hemoglobin. Peaked at 9.3 with the 2 units. Today she is 8.4. Iron found to be low (16), Ferrous sulfate 325mg PO BID ordered Repeat CBC post daily (3) Hypokalemia Conclusion/Plan: Potassium not normalized until yesterday. She started the morning with 2.9 and required IV potassium supplement again. By afternoon she was 3.5 and this morn ing she is 3.6. Plan: We will stop ICU protocol since I am transferring her to the floor. Start regular replacement of potassium p.o. Continue to check daily (4) Alcoholism Conclusion/Plan: Banana bags x2 complete, transitioned to PO on 08/22 Patient placed on CIWA protocol. No PRN lorazapam needed.This is in spite of slight tachycardia, tremulousness, hypertension. And a subjective sensation of anxiety. Vitamin B1 supplement on a daily. Repeat daily CMP (5) GERD (gastroesophageal reflux disease) Conclusion/Plan: Protonix 40 mg IV daily given. Changed to p.o. (6) Back/Flank Pain PRN Acetaminophen 650mg PO Q6hr PRN Morphine 2mg IVP Q2hr
[2019-08-24] MEDS: POTASSIUM CHLORIDE 20 MEQ TABLET PO SCH (12:03)
[2019-08-24] MEDS: traZODone 50 MG TABLET PO PRN (21:13)
[2019-08-25] MEDS: LORazepam 2 MG/ML VIAL IVP PRN ×2 (00:25→08:22)
[2019-08-25] MEDS: SODIUM CHLORIDE FLUSH 0.9% 10 ML SYRINGE IVP SCH ×3 (00:26→17:19)
[2019-08-25 05:40] LABS: BASOPHILS % (AUTO) 0.9 %; EOSINOPHILS # (AUTO) 0.1 10^3/uL (0.0-0.7); EOSINOPHILS % (AUTO) 2.4 %; HGB - HEMOGLOBIN 8.1 g/dL (12.0-16.0); LYMPHOCYTES # (AUTO) 0.6 10^3/uL (1.5-3.5); LYMPHOCYTES % (AUTO) 18.6 %; MEAN CORPUSCULAR HEMOGLOBIN 25.5 pg (27.0-31.0); MEAN CORPUSCULAR HGB CONC 29.1 g/dL (32.0-36.0); MEAN CORPUSCULAR VOLUME 87.4 fL (81.0-99.0); MEAN PLATELET VOLUME 9.3 fL (7.9-10.8); MONOCYTES # (AUTO) 0.4 10^3/uL (0.0-1.0); MONOCYTES % (AUTO) 12.1 %; NEUTROPHILS # (AUTO) 2.2 10^3/uL (1.5-6.6); NEUTROPHILS % (AUTO) 65.1 %; PLT - PLATELET COUNT 56 10^3/uL (130-450); RED BLOOD COUNT 3.18 10^6/uL (4.20-5.40); RED CELL DISTRIBUTION WIDTH 21.3 % (12.0-15.0); WHITE BLOOD COUNT 3.4 x10^3/uL (4.8-10.8)
[2019-08-25 05:44] LABS: CALCIUM 8.3 mg/dL (8.5-10.3); CREATININE 0.6 mg/dL (0.4-1.0)
[2019-08-25 06:21] LABS: PLATELET ESTIMATE, MANUAL DECREASED (<130,000) (NORMAL); PLATELET MORPHOLOGY NORMAL APPEARANCE (NORMAL)
[2019-08-25] MEDS: PANTOPRAZOLE 40 MG TABLET PO SCH (06:33)
[2019-08-25] MEDS: LACTULOSE 10 GM /15 ML UDC PO SCH ×3 (06:34→21:09)
[2019-08-25] MEDS: POTASSIUM CHLORIDE 20 MEQ TABLET PO SCH (07:56)
[2019-08-25] MEDS: MULTIVITAMIN TABLET PO SCH (07:56)
[2019-08-25] MEDS: FOLIC ACID 1 MG TABLET PO SCH (07:57)
[2019-08-25] MEDS: THIAMINE 100 MG TABLET PO SCH (07:57)
[2019-08-25] MEDS: CIPROFLOXACIN 250 MG TABLET PO SCH ×2 (07:57→21:09)
[2019-08-25] MEDS: FERROUS SULFATE 325 MG TABLET PO SCH ×2 (07:57→17:19)
[2019-08-25] MEDS: MORPHINE 2 MG/ML CARPUJECT IVP PRN ×3 (08:22→21:10)
[2019-08-25] MEDS: NEUTRA-PHOS 250 MG TABLET PO SCH ×3 (08:24→17:19)
[2019-08-25] MEDS: SODIUM CHLORIDE FLUSH 0.9% 10 ML SYRINGE IVP PRN ×2 (08:24→21:10)
[2019-08-25] MEDS ORDERED: CIPROFLOXACIN 250 MG TABLET PO SCH (10:00)
[2019-08-25] MEDS ORDERED: LORazepam 0.5 MG TABLET PO PRN (10:29)
--- NOTE | 2019-08-25 10:30 | PROVIDER PROGRESS NOTE ---
Assessment/Plan - Problem List (1) Hepatic encephalopathy Assessment/Plan: Encephalopathy and mental status has improved but Patient still has ammonia level at 125. it is Likely secondary to alcohol induced liver failure. pt's fiance [place] patient did not drink alcohol for quite a long time but she stated patient had bad relationship in the previous and had severe alcohol problem. it Seems patient tolerated lactulose 30 groin 3 times daily well and patient did not report diarrhea, we will continue 30 g 3 times daily lactulose, and daily ammonia test. Continue physical therapist for patient (2)UTI Patient had a UTI with E. coli infection, patient had a fever 37.9 degrees on yesterday and patient temperature is slightly increased today with mild tachycardia. We will increase cipro 500 twice daily, Vital signs monitor patient closely. (3) Anemia Conclusion/Plan: Patient had a 2 units of blood transfusion already, patient has history of low gastro ulcers, But Fecal occult was negative. Also patient has significantly iron deficiency. exact etiology was unknown, it can be from patient hepatic failure and iron deficiency. Continue Protonix, continue iron replacement, continue [facility] (4) Hypokalemia Conclusion/Plan: Resolved (5) hx of Alcoholism Conclusion/Plan: Patient has significantly history of severe alcoholism in the previous, per pt's finance report, But the patient did not drink alcohol for quite a long time. We will continue vitamin B-1 and folic acid and pre- vitamin supplement. (6) GERD (gastroesophageal reflux disease) Conclusion/Plan: Protonix 40 mg IV daily given. Changed to p.o. (7) Back/Flank Pain PRN Acetaminophen 650mg PO Q6hr PRN Morphine 2mg IVP Q2hr - Current Meds Current Meds: Current Medications Generic Name Dose Route Start Last Admin Trade Name Freq PRN Reason Stop Dose Admin Acetaminophen 650 mg 08/22/19 06:02 08/22/19 19:42 Tylenol PO 650 mg Q6HR PRN Administration Pain or Fever > 38C (100.4F) Ferrous Sulfate 325 mg 08/22/19 08:00 08/25/19 07:57 Feosol PO 325 mg BIDWM [facility] Administration Folic Acid 1 mg 08/23/19 09:00 08/25/19 07:57 PO 1 mg DAILY [facility] Administration Heparin Sodium (Beef Lung) 30 - 50 unit 08/23/19 01:29 08/24/19 18:00 IVP 50 unit PRN PRN Administration Central Line Protocol (<24 hr) Lactulose 30 gm 08/24/19 14:00 08/25/19 06:34 Enulose PO 30 gm TID E[facility]ON Administration Morphine Sulfate 2 mg 08/22/19 10:28 08/25/19 08:22 Morphine (Carpuject) IVP 2 mg Q2HR PRN Administration PAIN Multivitamins 1 tab 08/23/19 09:00 08/25/19 07:56 Theragran PO 1 tab DAILYWM [facility] Administration Ondansetron HCl 4 mg 08/22/19 02:11 08/23/19 07:09 Zofran Inj IVP 4 mg Q6HR PRN Administration Nausea / Vomiting Pantoprazole Sodium 40 mg 08/25/19 07:00 08/25/19 06:33 Protonix PO 40 mg QDAC [facility] Administration Potassium Chloride 20 meq 08/24/19 12:00 08/25/19 07:56 K-Dur PO 20 meq DAILYWM [facility] Administration Sodium Chloride 10 ml 08/22/19 09:00 08/25/19 07:58 Normal Saline Flush 0.9% IVP 10 ml 0100,0900,1700 [facility] Administration Sodium Chloride 10 ml 08/22/19 02:11 08/25/19 08:24 Normal Saline Flush 0.9% IVP 10 ml PRN PRN Administration NEEDED PER PROVIDER ORDERS Sodium Chloride 20 ml 08/23/19 01:29 08/23/19 23:35 Normal Saline Flush 0.9% IVP 20 ml PRN PRN Administration After Blood Draw Sodium Phosphate 250 mg 08/25/19 08:00 08/25/19 08:24 K-Phos Neutral PO 250 mg TIDWM [facility] Administration Thiamine HCl 100 mg 08/22/19 09:00 08/25/19 07:57 Vitamin B-1 PO 100 mg DAILY [facility] Administration Trazodone HCl 50 mg 08/22/19 20:11 08/24/19 21:13 Desyrel PO 50 mg QPM PRN Administration Insomnia - Lab Result Fish Bone Diagrams: 08/25/19 05:25 08/25/19 05:25 - Additional Planning My Orders: My Active Orders 08/25/19 08:00 Neutra-Phos [K-Phos Neutral] 250 mg PO TIDWM 08/25/19 10:00 Ciprofloxacin [Cipro] 250 mg PO ONCE 08/25/19 10:29 LORazepam [Ativan] 0.5 mg PO Q12H PRN 08/25/19 21:00 Ciprofloxacin [Cipro] 500 mg PO BID 08/26/19 05:00 AMMONIA [CHEM] DAILYLAB CMP [COMPREHENSIVE METABOLIC PANEL] [CHEM] DAILYLAB PHOSPHORUS [CHEM] DAILYLAB 08/27/19 05:00 AMMONIA [CHEM] DAILYLAB CBC - COMP BLD CT W/AUTO DIFF [HEME] DAILYLAB CMP [COMPREHENSIVE METABOLIC PANEL] [CHEM] DAILYLAB PHOSPHORUS [CHEM] DAILYLAB 08/28/19 05:00 AMMONIA [CHEM] DAILYLAB CBC - COMP BLD CT W/AUTO DIFF [HEME] DAILYLAB CMP [COMPREHENSIVE METABOLIC PANEL] [CHEM] DAILYLAB PHOSPHORUS [CHEM] DAILYLAB 08/29/19 05:00 AMMONIA [CHEM] DAILYLAB CBC - COMP BLD CT W/AUTO DIFF [HEME] DAILYLAB CMP [COMPREHENSIVE METABOLIC PANEL] [CHEM] DAILYLAB PHOSPHORUS [CHEM] DAILYLAB Subjective - Subjective Patient Reports: Feeling Better Objective Vital Signs: Vital Signs - 24 hr 08/24/19 08/24/19 08/24/19 11:00 12:00 16:28 Temperature 36.9 C 37.1 C Heart Rate [ Brachial] Heart Rate [ 99 105 H 89 Monitoring electrodes] Respiratory 18 14 18 Rate Blood Pressure 141/75 H 124/85 H 127/75 [Right Brachial artery] O2 Saturation 95 100 96 08/24/19 08/25/19 23:51 08:17 Temperature 37.2 C 37.4 C Heart Rate [ 101 H 105 H Brachial] Heart Rate [ Monitoring electrodes] Respiratory 18 14 Rate Blood Pressure 128/74 119/43 L [Right Brachial artery] O2 Saturation 98 95 Oxygen O2 Source Room air I&O (Last 24 Hrs): Intake and Output Totals x24h 08/23/19 08/24/19 08/25/19 23:59 23:59 23:59 Intake Total 4325.000 1440 800 Output Total 2300 1350 Balance 2025.000 90 800 General: Alert, No acute distress HEENT: Atraumatic Neck: Supple Lymphatic: no adenopathy Neuro: Alert, Non Focal Cardiovascular: Normal S1, Normal S2 Respiratory: Chest non-tender, No respiratory distress Abdomen: Normal bowel sounds, Soft, No tenderness Extremities: Normal pulses - Results Results: Laboratory Results WBC 3.4 x10^3/uL (4.8-10.8) L 08/25/19 05:25 RBC 3.18 10^6/uL (4.20-5.40) L 08/25/19 05:25 Hgb 8.1 g/dL (12.0-16.0) L 08/25/19 05:25 Hct 27.8 % (37.0-47.0) L 08/25/19 05:25 MCV 87.4 fL (81.0-99.0) 08/25/19 05:25 MCH 25.5 pg (27.0-31.0) L 08/25/19 05:25 MCHC 29.1 g/dL (32.0-36.0) L 08/25/19 05:25 RDW 21.3 % (12.0-15.0) H 08/25/19 05:25 Plt Count 56 10^3/uL (130-450) L 08/25/19 05:25 MPV 9.3 fL (7.9-10.8) 08/25/19 05:25 Neut # (Auto) 2.2 10^3/uL (1.5-6.6) 08/25/19 05:25 Lymph # (Auto) 0.6 10^3/uL (1.5-3.5) L 08/25/19 05:25 [place] # (Auto) 0.4 10^3/uL (0.0-1.0) 08/25/19 05:25 Eos # (Auto) 0.1 10^3/uL (0.0-0.7) 08/25/19 05:25 Baso # (Auto) 0.0 10^3/uL (0.0-0.1) 08/25/19 05:25 Absolute Nucleated RBC 0.00 x10^3/uL 08/25/19 05:25 Total Counted 100 08/22/19 04:30 Band Neuts % (Manual) 0 % (0-10) 08/22/19 04:30 Abnorm Lymph % (Manual) 0 % 08/22/19 04:30 Nucleated RBC % 0.0 /100WBC 08/25/19 05:25 Neutrophils # (Manual) 1.8 10^3/uL (1.5-6.6) 08/22/19 04:30 Lymphocytes # (Manual) 0.6 10^3/uL (1.5-3.5) L 08/22/19 04:30 Monocytes # (Manual) 0.2 10^3/uL (0.0-1.0) 08/22/19 04:30 Eosinophils # (Manual) 0.1 10^3/uL (0-0.7) 08/22/19 04:30 Basophils # (Manual) 0.0 10^3/uL (0-0.1) 08/22/19 04:30 Differential Comment MANUAL DIFFERENTIAL 08/22/19 04:30 Manual Slide Review Indicated 08/25/19 05:25 WBC Morphology NORMAL APPEARANCE (NORMAL) 08/25/19 05:25 Platelet Estimate DECREASED (<130,000) (NORMAL) 08/25/19 05:25 Platelet Morphology NORMAL APPEARANCE (NORMAL) 08/25/19 05:25 RBC Morph Micro Appear 1+ ANISOCYTOSIS (NORMAL) 1+ HYPOCHROMASIA (NORMAL) 08/25/19 05:25 RBC Morph Micro Appear 1+ ANISOCYTOSIS (NORMAL) 1+ HYPOCHROMASIA (NORMAL) 08/25/19 05:25 PT 19.5 secs (9.9-12.6) H 08/22/19 02:48 INR 1.8 (0.8-1.2) H 08/22/19 02:48 Sodium 139 mmol/L (135-145) 08/25/19 05:25 Potassium 3.5 mmol/L (3.5-5.0) 08/25/19 05:25 Chloride 110 mmol/L (101-111) 08/25/19 05:25 Carbon Dioxide 24 mmol/L (21-32) 08/25/19 05:25 Anion Gap 5.0 (6-13) L 08/25/19 05:25 BUN 5 mg/dL (6-20) L 08/25/19 05:25 Creatinine 0.6 mg/dL (0.4-1.0) 08/25/19 05:25 Estimated GFR (MDRD) 106 (>89) 08/25/19 05:25 Glucose 101 mg/dL (70-100) H 08/25/19 05:25 Calcium 8.3 mg/dL (8.5-10.3) L 08/25/19 05:25 Phosphorus 2.3 mg/dL (2.5-4.6) L 08/24/19 07:25 Magnesium 1.9 mg/dL (1.7-2.8) 08/24/19 07:25 Iron 16 ug/dL (28-170) L 08/22/19 04:30 TIBC 441 ug/dL (250-450) 08/22/19 04:30 % Saturation 4 % (20-50) L 08/22/19 04:30 Transferrin 315 mg/dL (192-382) 08/22/19 04:30 Ferritin 9.8 ng/mL (11.0-306.8) L 08/22/19 04:30 Total Bilirubin 2.9 mg/dL (0.2-1.0) H 08/22/19 00:30 AST 58 IU/L (10-42) H 08/22/19 00:30 ALT 24 IU/L (10-60) 08/22/19 00:30 Alkaline Phosphatase 163 IU/L (42-121) H 08/22/19 00:30 Ammonia 126.5 umol/L (7-35) H* 08/25/19 05:25 Total Protein 5.9 g/dL (6.7-8.2) L 08/22/19 00:30 Albumin 2.7 g/dL (3.2-5.5) L 08/23/19 04:30 Globulin 2.7 g/dL (2.1-4.2) 08/22/19 00:30 Albumin/Globulin Ratio 1.2 (1.0-2.2) 08/22/19 00:30 Lipase 53 U/L (22-51) H 08/22/19 00:30 Vitamin B12 708 pg/mL (180-914) 08/22/19 04:30 Folate 11.54 ng/mL (5.90 - >24.8) 08/22/19 04:30 Urine Color YELLOW 08/22/19 00:15 Urine Clarity CLEAR (CLEAR) 08/22/19 00:15 Urine pH 8.0 PH (5.0-7.5) H 08/22/19 00:15 Ur Specific [place] 1.010 (1.002-1.030) 08/22/19 00:15 Ur Specific [place] 1.010 (1.002-1.030) 08/22/19 00:15 Urine Protein NEGATIVE mg/dL (NEGATIVE) 08/22/19 00:15 Urine Glucose (UA) NEGATIVE mg/dL (NEGATIVE) 08/22/19 00:15 Urine Ketones NEGATIVE mg/dL (NEGATIVE) 08/22/19 00:15 Urine Occult Blood NEGATIVE (NEGATIVE) 08/22/19 00:15 Urine Nitrite NEGATIVE (NEGATIVE) 08/22/19 00:15 Urine Bilirubin NEGATIVE (NEGATIVE) 08/22/19 00:15 Urine Urobilinogen 1 (NORMAL) E.U./dL (NORMAL) 08/22/19 00:15 Ur Leukocyte Esterase TRACE (NEGATIVE) H 08/22/19 00:15 Urine RBC 0-5 /HPF (0-5) 08/22/19 00:15 Urine WBC 0-3 /HPF (0-5) 08/22/19 00:15 Ur Squamous Epith Cells FEW Squamous (<= Few) 08/22/19 00:15 Urine Bacteria Moderate /HPF (None Seen) H 08/22/19 00:15 Ur Microscopic Review INDICATED 08/22/19 00:15 Urine Culture Comments INDICATED 08/22/19 00:15 Urine HCG, Qual NEGATIVE 08/22/19 00:15 Nasal Screen MRSA (PCR) NEGATIVE (NEGATIVE) 08/22/19 03:35 Acetaminophen 11 ug/mL (10-30) 08/22/19 12:02 Blood Type A POSITIVE 08/22/19 02:48 Blood Type Recheck A POSITIVE 08/22/19 00:30 Antibody Screen NEGATIVE 08/22/19 02:48 Crossmatch IS Only See Detail 08/22/19 02:48 ABX Reporting Has patient been on IV antibiotics over the past 48 hours?: Yes Current Medications - Current Medications Current Medications: Active Medications Acetaminophen (Tylenol) 650 mg PO Q6HR PRN PRN Reason: Pain or Fever > 38C (100.4F) Last Admin: 08/22/19 19:42 Dose: 650 mg Documented by: Ciprofloxacin (Cipro) 500 mg PO BID [facility] Ciprofloxacin (Cipro) 250 mg PO ONCE [facility] Stop: 08/25/19 12:00 Last Admin: 08/25/19 10:54 Dose: 250 mg Documented by: Ferrous Sulfate (Feosol) 325 mg PO BIDWM [facility] Last Admin: 08/25/19 07:57 Dose: 325 mg Documented by: Folic Acid () 1 mg PO DAILY [facility] Last Admin: 08/25/19 07:57 Dose: 1 mg Documented by: Heparin Sodium (Beef Lung) () 30 - 50 unit IVP PRN PRN PRN Reason: Central Line Protocol (<24 hr) Last Admin: 08/24/19 18:00 Dose: 50 unit Documented by: Lactulose (Enulose) 30 gm PO TID [facility] Last Admin: 08/25/19 06:34 Dose: 30 gm Documented by: Lorazepam (Ativan) 0.5 mg PO Q12H PRN PRN Reason: Anxiety Morphine Sulfate (Morphine (Carpuject)) 2 mg IVP Q2HR PRN PRN Reason: PAIN Last Admin: 08/25/19 08:22 Dose: 2 mg Documented by: Multivitamins (Theragran) 1 tab PO DAILYWM [facility] Last Admin: 08/25/19 07:56 Dose: 1 tab Documented by: Ondansetron HCl (Zofran Inj) 4 mg IVP Q6HR PRN PRN Reason: Nausea / Vomiting Last Admin: 08/23/19 07:09 Dose: 4 mg Documented by: Pantoprazole Sodium (Protonix) 40 mg PO QDAC [facility] Last Admin: 08/25/19 06:33 Dose: 40 mg Documented by: Potassium Chloride (K-Dur) 20 meq PO DAILYWM [facility] Last Admin: 08/25/19 07:56 Dose: 20 meq Documented by: Sodium Chloride (Normal Saline Flush 0.9%) 10 ml IVP 0100,0900,1700 [facility] Last Admin: 08/25/19 07:58 Dose: 10 ml Documented by: Sodium Chloride (Normal Saline Flush 0.9%) 10 ml IVP PRN PRN PRN Reason: NEEDED PER PROVIDER ORDERS Last Admin: 08/25/19 08:24 Dose: 10 ml Documented by: Sodium Chloride (Normal Saline Flush 0.9%) 20 ml IVP PRN PRN PRN Reason: After Blood Draw Last Admin: 08/23/19 23:35 Dose: 20 ml Documented by: Sodium Phosphate (K-Phos Neutral) 250 mg PO TIDWM [facility] Last Admin: 08/25/19 10:54 Dose: 250 mg Documented by: Thiamine HCl (Vitamin B-1) 100 mg PO DAILY [facility] Last Admin: 08/25/19 07:57 Dose: 100 mg Documented by: Trazodone HCl (Desyrel) 50 mg PO QPM PRN PRN Reason: Insomnia Last Admin: 08/24/19 21:13 Dose: 50 mg Documented by: Multivitamin [Theragran] 1 tab PO DAILY 08/22/19 Omeprazole 10 mg PO DAILY 08/22/19 Valerian Root Extract [Valerian] 0 mg PO DAILY 08/22/19
[2019-08-25] MEDS: traZODone 50 MG TABLET PO PRN (21:09)
[2019-08-26 00:09] VITALS: BP 140/83
[2019-08-26] MEDS: SODIUM CHLORIDE FLUSH 0.9% 10 ML SYRINGE IVP SCH ×2 (05:46→09:25)
[2019-08-26] MEDS: LACTULOSE 10 GM /15 ML UDC PO SCH (05:52)
[2019-08-26] MEDS: PANTOPRAZOLE 40 MG TABLET PO SCH (05:52)
[2019-08-26 06:00] LABS: BASOPHILS % (AUTO) 0.9 %; EOSINOPHILS # (AUTO) 0.1 10^3/uL (0.0-0.7); EOSINOPHILS % (AUTO) 1.7 %; HGB - HEMOGLOBIN 8.8 g/dL (12.0-16.0); LYMPHOCYTES # (AUTO) 0.7 10^3/uL (1.5-3.5); LYMPHOCYTES % (AUTO) 20.9 %; MEAN CORPUSCULAR HEMOGLOBIN 26.6 pg (27.0-31.0); MEAN CORPUSCULAR HGB CONC 30.2 g/dL (32.0-36.0); MEAN CORPUSCULAR VOLUME 87.9 fL (81.0-99.0); MEAN PLATELET VOLUME 8.6 fL (7.9-10.8); MONOCYTES # (AUTO) 0.4 10^3/uL (0.0-1.0); MONOCYTES % (AUTO) 12.5 %; NEUTROPHILS # (AUTO) 2.2 10^3/uL (1.5-6.6); NEUTROPHILS % (AUTO) 63.7 %; PLT - PLATELET COUNT 65 10^3/uL (130-450); RED BLOOD COUNT 3.31 10^6/uL (4.20-5.40); RED CELL DISTRIBUTION WIDTH 21.7 % (12.0-15.0); WHITE BLOOD COUNT 3.5 x10^3/uL (4.8-10.8)
[2019-08-26 06:12] LABS: ALBUMIN 2.9 g/dL (3.2-5.5); ALBUMIN/GLOBULIN RATIO 1.2 (1.0-2.2); BILIRUBIN,TOTAL 2.3 mg/dL (0.2-1.0); CALCIUM 8.6 mg/dL (8.5-10.3); CREATININE 0.6 mg/dL (0.4-1.0); PHOSPHORUS 3.1 mg/dL (2.5-4.6); TOTAL PROTEIN 5.4 g/dL (6.7-8.2)
[2019-08-26] MEDS: ACETAMINOPHEN 325 MG TABLET PO PRN (06:39)
[2019-08-26 07:00] LABS: PLATELET ESTIMATE, MANUAL DECREASED (<130,000) (NORMAL); PLATELET MORPHOLOGY NORMAL APPEARANCE (NORMAL)
[2019-08-26] MEDS ORDERED: POTASSIUM CHLORIDE 20 MEQ TABLET PO SCH (07:26)
[2019-08-26] MEDS: NEUTRA-PHOS 250 MG TABLET PO SCH ×2 (09:22→14:02)
[2019-08-26] MEDS: THIAMINE 100 MG TABLET PO SCH (09:22)
[2019-08-26] MEDS: CIPROFLOXACIN 250 MG TABLET PO SCH (09:23)
[2019-08-26] MEDS: MULTIVITAMIN TABLET PO SCH (09:23)
[2019-08-26] MEDS: FOLIC ACID 1 MG TABLET PO SCH (09:23)
[2019-08-26] MEDS: FERROUS SULFATE 325 MG TABLET PO SCH (09:23)
[2019-08-26] MEDS: POTASSIUM CHLORIDE 20 MEQ TABLET PO SCH (09:24)
--- NOTE | 2019-08-26 11:13 | Discharge Plan ---
Discharge Plan Problem Reviewed?: Yes Disposition: Home, Self Care Condition: Poor Prescriptions: Ciprofloxacin [Cipro] 500 mg PO BID #10 tablet Ferrous Sulfate 325 mg PO DAILY #30 tablet Potassium Chloride [K-Dur] 20 meq PO DAILYWM #10 tablet Lactulose 20 gm PO TID #60 bottle Pnv No.95/Ferrous Fum/Folic AC [ Tablet] 1 each PO DAILY #30 tablet traMADol [Ultram] 50 mg PO Q4-6H PRN #20 tablet PRN Reason: Pain Thiamine [Vitamin B-1] 100 mg PO DAILY #30 tablet Diet: Regular Activity Restrictions: Activity as Tolerated Shower Restrictions: No (fall precaution) Instruction Topics: Alcoholism, Lactulose oral solution, UTI, Ciprofloxacin tablets, Tramadol tablets Health Concerns: hepatic encephalopathy, UTI, hypokalemia Plan of Treatment: you are prescribed Lactulose to reduce your ammonia level, you may followup with medication schedule, recheck your ammonia level when you next see your PCP. Advise you avoid any alcohol intake. You were found to have UTI, antibiotics Cipro is prescribed for you to finish the treatment course. You were found to have hypokalemia, daily potassium is prescribed for you. advise you check your potassium level when you next see your PCP. Care Goals: stabilization and improvement of your medical conditions Assessment: discussed with you and your fiance for the care plan, you and your fiance understood and agreed. Additional Instructions or Follow Up instructions: You may followup with your PCP in next week, recheck your ammonia and potassium level, advise you avoid any alcohol intake. Should your symptoms return or worsen, you may present ER or call 911 for help. No Smoking: If you smoke, Please STOP! Call for help.
--- NOTE | 2019-08-26 11:52 | DISCHARGE SUMMARY ---
Discharge Summary Admit Date: 08/22/19 Discharge Date: 08/26/19 Discharging Provider: David Wilkins Primary Care Provider: social services coordinator set up a PCP for you already. Condition at Discharge: Poor Discharge Disposition: Home, Self Care Discharge Facility Name: home - DIAGNOSES Discharge Diagnoses with Status of Each Condition: (1) Hepatic encephalopathy Patient is a late, orientated today. Patient's ammonia level is 63 today. Pat ient is prescribed lactulose for discharge, advised patient follow-up with PCP recheck ammonia level in 1 week, advise avoid Alcohol intake. (2)UTI Patient had a UTI with E. coli infection. Patient is a prescript of cipro to finish treatment course (3) Anemia Patient had a 2 units of blood transfusion already, patient has history of low gastro ulcers, But Fecal occult was negative. Also patient has significantly iron deficiency. pt is prescribed iron replacement, Follow-up with PCP for further management (4) Hypokalemia Patient has a very low potassium in the admission. Patient is prescribed of potassium, advised patient follow-up with PCP to recheck potassium level (5) hx of Alcoholism Patient has significantly history of severe alcoholism in the previous, per pt's finance report, But the patient did not drink alcohol for quite a long time. pt is prescribed vitamin B-1 and pre-riddhi vitamin supplement. (6) GERD (gastroesophageal reflux disease) Stable, continue home meds (7) Back/Flank Pain Patient has a hx of chronic back pain, patient is prescribed tramadol as needed for pain control - HPI History of Present Illness: refer from Dr. Elizabeth's HPI on 08/22/2019 Patient is a 49-year-old female who presented to the ED today with confusion, weakness and a complaint of not sleeping for the past week. She had presented 2 days ago with complaint of being tired for several days. Her fianc who was at bedside at the initial visit stated that she seemed confused, somnolent and had been very tremulous for the past 3 days. On the day of her initial presentation which was August 19 2019, the fianc reported that the tremors were exceptionally worse and she was unable to ambulate. It was reported that she recently moved to [facility] to live with a cousin. She was previously living in [facility] and had not seen this cousin in 11 years. Initial work-up showed a hemoglobin of 7.0, platelet 58. It also showed a potassium of 2.3 and an ammonia level of 155. The decision was made to admit the patient however she and her fianc declined stating that the patient had a phobia against hospitals, there was no one at home to take care of her dogs and she intended to return to the emergency room the following morning. She left the ED AGAINST MEDICAL ADVICE. She was brought in today by her cousin after complaining of right-sided back pain. She denied any pain or burning with urination however she reported a strong smell to her urine and increased urine frequency. She reported abdominal pain but could not localize it. Work-up today showed a hemoglobin of 6.6, platelet 66 and WBC 3.2. She also had a potassium level of 2.3 and an ammonia level of 210. She denied any dark tarry stools. However she reports receiving a massive transfusion in the past. She cannot give me any specifics as to the reason why she received this transfusion. She appears even more confused and somnolent today. Her UA was negative for nitrites, had moderate bacteria and trace leukocyte esterase. Patient is afebrile. As a result of the above she is being admitted for further treatment. - HOSPITAL COURSE Hospital Course: Patient was admitted for confused and weakness. patient has history of alcoholism. Routine laboratory found patient has ammonia level at 210 and potassium at 2.3. Patient also found to have E. coli UTI infection. Patient was treated with lactulose, and antibiotics for UTI,And replace of the potassium. After treatment, patient's ammonia level is 63, potassium is 3.4, Patient become alert and orientated. Patient also was treated and evaluated by physical therapist and occupational therapist. Physical therapist and occupational the rapist recommended patient can be safely discharged to home. Patient is a prescript of [employer] walker. Social work also found a PCP for patient, Patient was prescribed of lactulose, antibiotics, potassium. Pt and her fiance Was very happy to be discharged to home and appreciation of our hard work to her - ALLERGIES Allergies/Adverse Reactions: Allergies Allergy/AdvReac Type Severity Reaction Status Date / Time Penicillins Allergy Anaphylaxis Verified 08/26/19 10:00 - MEDICATIONS Home Medications: Ambulatory Orders Medication Instructions Recorded Confirmed Multivitamin [Theragran] 1 tab PO DAILY 08/22/19 08/22/19 Omeprazole 10 mg PO DAILY 08/22/19 08/22/19 Valerian Root Extract [Valerian] 0 mg PO DAILY 08/22/19 08/22/19 Ciprofloxacin [Cipro] 500 mg PO BID #10 tablet 08/26/19 Ferrous Sulfate 325 mg PO DAILY #30 tablet 08/26/19 Lactulose 20 gm PO TID #60 bottle 08/26/19 Potassium Chloride [K-Dur] 20 meq PO DAILYWM #10 tablet 08/26/19 Thiamine [Vitamin B-1] 100 mg PO DAILY #30 tablet 08/26/19 traMADol [Ultram] 50 mg PO Q4-6H PRN #20 tablet 08/26/19 - PHYSICAL EXAM AT DISCHARGE General Appearance: positive: No acute distress, Alert. negative: Lethargic Eyes Bilateral: positive: Normal inspection, PERRL, No lid inflammation ENT: positive: ENT inspection nml, Pharynx nml, No signs of dehydration. negative: Purulent nasal drainage Neck: positive: Nml inspection, Thyroid nml, No JVD, Trachea midline. negative: Thyromegaly, Stiff neck, Tracheal deviation Respiratory: positive: Chest non-tender, No respiratory distress, Breath sounds nml. negative: Wheezes, Rales, Rhonchi Cardiovascular: positive: Regular rate & rhythm, No murmur, No gallop. negative: Irregularly irregular, Tachycardia, Bradycardia, Systolic murmur, Diastolic murmur Peripheral Pulses: positive: 2+ Abdomen: positive: Non-tender, No organomegaly, Nml bowel sounds, No distention. negative: Tenderness, Guarding, Rebound Back: positive: Nml inspection, CVA tenderness (R). negative: CVA tenderness (L) Skin: positive: Color nml, No rash, Warm, Dry. negative: Cyanosis, Diaphoresis, Pallor Extremities: positive: Non-tender, Full ROM, Nml appearance. negative: Calf tenderness, Zoe's sign/cords Neurologic/Psychiatric: positive: Oriented x3, Motor nml, Sensation nml. negative: Weakness, Sensory loss, Facial droop, Slurred/abnml speech, Depressed mood/affect - LABS Result Diagrams: 08/26/19 05:55 08/26/19 05:55 - DIAGNOSTIC IMAGING Diagnostic Imaging Results Comments: CT of the abdomen show cirrhosis and a small amount of ascites - FOLLOW UP Follow Up: you are prescribed Lactulose to reduce your ammonia level, you may followup with medication schedule, recheck your ammonia level when you next see your PCP. Advise you avoid any alcohol intake. You were found to have UTI, antibiotics Cipro is prescribed for you to finish the treatment course. You were found to have hypokalemia, daily potassium is prescribed for you. advise you check your potassium level when you next see your PCP. You may followup with your PCP in next week, recheck your ammonia and potassium level, advise you avoid any alcohol intake. Should your symptoms return or worsen, you may present ER or call 911 for help. - TIME SPENT Time Spent in Discharge (Minutes): 30
== END 2019-08-26 13:30 | disposition home or self-care (01) | DRG 433 ==
LOC: ED 23:16 → ICU 08-22 02:11 → MERGE 08-22 02:11 → MS2 08-24 13:57
PROVIDERS: ADMIT Internal Medicine; ATTEND Nurse Practitioner Gerontology
PROC: 30243N1 Transfusion of Nonautologous Red Blood Cells into Central Vein, Percutaneous Approach (ICD-10-PCS; principal; 2019-08-22)
DX: K70.40 Alcoholic hepatic failure without coma (principal); N39.0 Urinary tract infection, site not specified; D61.818 Other pancytopenia; K70.31 Alcoholic cirrhosis of liver with ascites; I86.4 Gastric varices; F10.20 Alcohol dependence, uncomplicated; B96.20 Unspecified Escherichia coli [E. coli] as the cause of diseases classified elsewhere; E87.6 Hypokalemia; K21.9 Gastro-esophageal reflux disease without esophagitis; G89.29 Other chronic pain; M54.9 Dorsalgia, unspecified; Z74.09 Other reduced mobility; F17.210 Nicotine dependence, cigarettes, uncomplicated
CPT/HCPCS: 36415; 36556; 71045; 74177; 80048; 80053; 80307; 81001; 81025; 82040; 82140; 82272; 82310; 82607; 82728; 82746; 83010; 83540; 83690; 83735; 84100; 84132; 84466; 85025; 85027; 85610; 86850; 86900; 86901; 86920; 87086; 87150; 87181; 96361; 96374; 96375; 97116; 97161; 97530; 99285; A9270; J2060; J3411; J8499; P9016; Q9967; 81003